=== PATIENT | female | born 1975 | race Caucasian/White ===

== ENCOUNTER 2017-05-25 11:13 | Emergency (ER) | payer OTHER, SELFPAY ==
[2017-05-25 12:37] VITALS: BP 115/67; PULSE 77; RESP 20; TEMP 36.6; O2SAT 98; BMI 29.0
--- NOTE | 2017-05-25 12:48 | HMH.EDUTC ---
[facility] [place] Clinical Impression: Back pain with right-sided sciatica, Microscopic hematuria Disposition: Home, Self-Care Condition on Discharge: Good Instructions: DI for Back Pain With Sciatica, DI for Hematuria Additional Instructions: * naproxen every 12 hours with meal as needed for pain/inflammation. * Remember you had a toradol shot, similiar anti-inflammatory in clinic * you did have trace blood in your urine as we discussed. This could have been Dr. Aldana' concern. Follow up with him to review this visit is VERY important. If your back is not improving, you might need additional medication, imaging, therapy. * No additional anti-inflammatories like motrin, aleve, advil with the above amount of ibuprofen. You CAN still take Tylenol every 4 hours as needed if you need something more for pain. * Ice x15-20 mins 3-4 times a day or moist heat x15-20 mins 3-4 times a day to affected area, whichever gives you the most relief * Keep this area active. No movement leads to more stiffness. However, take it easy too and avoid heavy lifting, pushing, pulling. I am glad you are off until Tuesday night. If not resolved by then, I would encourage you to not return to work due to the risk of reinjuring it and instead, see Dr. Aldana on Tuesday. Prescriptions: Naproxen 375 mg PO BID #14 tab Referrals: Ramon Aldana [Primary Care Provider] - (Immediately for new or worsening symptoms or if no noticeable improvement over the next 3-4 days.) Forms: Work/School Release Time of Disposition: 13:18 Medical Decision Making Vital Signs: 05/25/17 12:37 Temperature 97.9 F Temperature Source Temporal Artery Scan Pulse Rate [Left Brachial] 77 Respiratory Rate 20 Blood Pressure [Left Arm] 115/67 Blood Pressure Mean [Left Arm] 83 Blood Pressure Source [Left Arm] Automatic Cuff Blood Pressure Position [Left Arm] Sitting 02 Sat by Pulse Oximetry 98 Oxygen Delivery Method Room Air - Lab Data Lab results reviewed: Yes: I reviewed the patient's lab results. Lab Results 05/25/17 12:41: Urine Color Yellow, Urine Appearance Clear, Urine pH 5.5, Ur Specific [place] 1.015, Urine Protein Negative, Urine Glucose (UA) Negative, Urine Ketones Negative, Urine Blood Trace, Urine Nitrate Negative, Urine Bilirubin Negative, Urine Urobilinogen 0.2, Ur Leukocyte Esterase Negative Orders (Tests/Meds): ED MEDICATIONS Discontinued Medications Generic Name Dose Route Start Last Admin Trade Name Manuela PRN Reason Stop Dose Admin Ketorolac Tromethamine 60 mg 05/25/17 12:48 05/25/17 13:04 Toradol 60mg/2ml Vial IM 05/25/17 12:49 60 mg ONCE ONE Administration - Kvng Inquiry Pt receiving controlled substance: No - Reevaluation(s) Time: 13:15 Reevaluation #1: Pt reports pain already improving and ready to be discharged. She isn't sure if from the injection or the tylenol she took before arrival but pain down to 4/10. [facility] [place] - General Stated complaint: Lower back pain Time Seen by Provider: 05/25/17 12:40 Mode of Arrival: Ambulatory Source of Information: Patient Limitations: No Limitations Description of Symptoms (Recalled from Triage Doc. by RN): C/O LOWER BACK PAIN X1 MONTH HEENT Symptoms (Recalled from RN notes): No Resp Symptoms (Recalled from RN notes): No Skin Symptoms (Recalled from RN notes): No MS Symptoms (Recalled from RN notes): Yes (BACK PAIN) Functional Status (Recalled from RN notes): N/A - History of Present Illness Provider Complaint: c/o right low back pain x 3 weeks. Similiar pain in August 2016. Saw Dr. Aldana at that time and was told it might be her kidneys. Pain resolved within a week with tylenol and she never followed up. No pain since until approx 3 weeks ago. No injury or trauma. Works in Housekeeping and lifts trash nightly. pain 8/10. Constant aching. Caused her to call in last night. Needs work excuse. Pain worse with laying down and some movements. Sharp pain radiates into right thigh at times. N
[2017-05-25 12:56] LABS: Apearance,Urine Clear (Clear); Bilirubin,Urine Negative (Negative); Blood, Urine Trace (Negative); Color,Urine Yellow (Yellow); Glucose,Urine (UA) Negative (Negative); Ketones,Urine Negative (Negative); PH,Urine 5.5 (5.0-8.5); Protein,Urine Negative (Negative); Specific Gravity, Urine 1.015 (1.005-1.030); Urobilinogen,Urine 0.2 EU/dl (0.2)
[2017-05-25 12:57] LABS: UTC Leukocyte Esterase,Urine Negative (Negative); UTC Nitrate,Urine Negative (Negative)
--- NOTE | 2017-05-25 13:06 | ED_ITS ---
[facility] – [place] Disposition Clinical Impression: Back pain with right-sided sciatica, Microscopic hematuria Disposition: Home, Self-Care Condition on Discharge: Good Instructions: DI for Back Pain With Sciatica, DI for Hematuria Additional Instructions: * naproxen every 12 hours with meal as needed for pain/inflammation. * Remember you had a toradol shot, similiar anti-inflammatory in clinic * you did have trace blood in your urine as we discussed. This could have been Dr. Aldana' concern. Follow up with him to review this visit is VERY important. If your back is not improving, you might need additional medication, imaging, therapy. * No additional anti-inflammatories like motrin, aleve, advil with the above amount of ibuprofen. You CAN still take Tylenol every 4 hours as needed if you need something more for pain. * Ice x15-20 mins 3-4 times a day or moist heat x15-20 mins 3-4 times a day to affected area, whichever gives you the most relief * Keep this area active. No movement leads to more stiffness. However, take it easy too and avoid heavy lifting, pushing, pulling. I am glad you are off until Tuesday night. If not resolved by then, I would encourage you to not return to work due to the risk of reinjuring it and instead, see Dr. Aldana on Tuesday. Prescriptions: Naproxen 375 mg PO BID #14 tab Referrals: Ramon Aldana [Primary Care Provider] - (Immediately for new or worsening symptoms or if no noticeable improvement over the next 3-4 days.) Forms: Work/School Release Time of Disposition: 13:18 Medical Decision Making Vital Signs: 05/25/17 12:37 Temperature 97.9 F Temperature Source Temporal Artery Scan Pulse Rate [Left Brachial] 77 Respiratory Rate 20 Blood Pressure [Left Arm] 115/67 Blood Pressure Mean [Left Arm] 83 Blood Pressure Source [Left Arm] Automatic Cuff Blood Pressure Position [Left Arm] Sitting 02 Sat by Pulse Oximetry 98 Oxygen Delivery Method Room Air - Lab Data Lab results reviewed: Yes: I reviewed the patient's lab results. Lab Results 05/25/17 12:41: Urine Color Yellow, Urine Appearance Clear, Urine pH 5.5, Ur Specific [place] 1.015, Urine Protein Negative, Urine Glucose (UA) Negative, Urine Ketones Negative, Urine Blood Trace, Urine Nitrate Negative, Urine Bilirubin Negative, Urine Urobilinogen 0.2, Ur Leukocyte Esterase Negative Orders (Tests/Meds): ED MEDICATIONS Discontinued Medications Generic Name Dose Route Start Last Admin Trade Name Manuela PRN Reason Stop Dose Admin Ketorolac Tromethamine 60 mg 05/25/17 12:48 05/25/17 13:04 Toradol 60mg/2ml Vial IM 05/25/17 12:49 60 mg ONCE ONE Administration - Kvng Inquiry Pt receiving controlled substance: No - Reevaluation(s) Time: 13:15 Reevaluation #1: Pt reports pain already improving and ready to be discharged. She isn't sure if from the injection or the tylenol she took before arrival but pain down to 4/ 10. [facility] [place] HPI - General Stated complaint: Lower back pain Time Seen by Provider: 05/25/17 12:40 Mode of Arrival: Ambulatory Source of Information: Patient Limitations: No Limitations Description of Symptoms (Recalled from Triage Doc. by RN): C/O LOWER BACK PAIN X1 MONTH HEENT Symptoms (Recalled from RN notes): No Resp Symptoms (Recalled from RN notes): No Skin Symptoms (Recalled from RN notes): No MS Symptoms (Recalled from RN notes): Yes (BACK PAIN) Functional Status (Recalled from RN
[2017-05-25 13:23] VITALS: BP 115/67; PULSE 77; RESP 20; TEMP 36.6; O2SAT 98
== END 2017-05-25 13:24 | disposition home or self-care (01) ==
PROVIDERS: Emergency Provider Nurse Practitioner Family; Family Provider Internal Medicine; PCP Internal Medicine
DX: M54.31 Sciatica, right side (principal); R31.29 Other microscopic hematuria
CPT/HCPCS: 81003; 96372; 99201

== ENCOUNTER 2017-06-21 00:54 | Emergency (ER) | payer OTHER, SELFPAY ==
--- NOTE | 2017-06-21 | CT_ITS ---
CT head/brain wo con HISTORY: Headache, loss of consciousness , syncope ITS.REASON: FALL ORDERING PHYSICIAN: Aurelio Saavedra MD PATIENT AGE: 42 years COMPARISON: None TECHNIQUE: Axial images obtained without contrast. Brain and bone windows reviewed. FINDINGS: No midline shift, mass effect, intracranial hemorrhage, hydrocephalus, or extra-axial fluid collection is evident. The calvarium has an unremarkable appearance. No mastoid effusion. No sinus air-fluid levels.. IMPRESSION: Negative CT head without contrast. No acute finding.
[2017-06-21 00:56] VITALS: BP 128/91; PULSE 90; RESP 16; O2SAT 97
[2017-06-21 01:01] VITALS: BP 156/115; PULSE 97; RESP 20; TEMP 36.7; O2SAT 97; BMI 26.6
--- NOTE | 2017-06-21 01:05 | CT_ITS ---
CT cervical spine wo con CLINICAL INDICATION: Neck pain following injury ITS.REASON: fall ORDERING PHYSICIAN: Aurelio Saavedra MD PATIENT AGE: 42 years COMPARISON: None FINDINGS: Normal alignment. No fracture or dislocation. No prevertebral soft tissue swelling. The lung apices are clear. There are slight decrease in the disc space at C5-C6 suggesting early degenerative disc disease IMPRESSION: No acute fracture
--- NOTE | 2017-06-21 01:05 | XR_ITS ---
XR chest 2V HISTORY: Posttraumatic pain, fall with injury and pain ITS.REASON: fall ORDERING PHYSICIAN: Aurelio Saavedra MD PATIENT AGE: 42 years COMPARISON: None available FINDINGS: The cardiomediastinal silhouette and pulmonary vascularity are within normal limits. The lungs are clear without infiltrates, suspicious nodules, or pleural effusions. There is a faint nodular opacity in the right apex which measures 4 mm nonspecific probably benign No acute bony abnormalities. IMPRESSION: No acute finding
[2017-06-21 01:16] LABS: Basophils # 0.1 K/mm3 (0-0.2); Basophils % 0.6 % (0.1-2.0); Eosinophils # 0.4 K/mm3 (0.0-0.4); Eosinophils % 4.5 % (0.1-12.0); Hematocrit 41.9 % (37.0-47.0); Hemoglobin 14.3 g/dL (12.2-16.2); Lymphocytes # 3.5 K/mm3 (0.7-4.5); Lymphocytes % 41.8 K/mm3 (10-50); Mean Corpuscular Hemoglobin 31.9 pg (27.0-31.2); Mean Corpuscular Volume 93.6 fl (81-99); Mean Platelet Volume 7.3 fl (7.4-10.4); Monocytes # 0.3 K/mm3 (0.1-1.0); Monocytes % 3.7 % (1.7-9.3); Neutrophils # 4.2 K/mm3 (1.8-7.8); Neutrophils % 49.5 % (37.0-80.0); Platelet Count 259 K/mm3 (142-424); Red Blood Count 4.48 M/mm3 (4.20-5.40); Red Cell Distribution Width 12.2 % (11.5-17.5); White Blood Count 8.4 K/mm3 (4.8-10.8)
--- NOTE | 2017-06-21 01:18 | PC.NURSE ---
FINGERSTICK BLOOD SUGAR - 150
[2017-06-21 01:39] LABS: Alanine Aminotransferase 27 U/L (12-78); Albumin Level 3.9 gm/dL (3.4-5.0); Alkaline Phosphatase 89 U/L (46-116); Anion Gap 11.3 mEq/L (5-15); Aspartate Amino Transferase 12 U/L (15-37); Bilirubin,Total 0.2 mg/dL (0.2-1.0); Blood Urea Nitrogen 12 mg/dL (7-18); CKMB Relative Index 1.8 U/L (0-4.0); Carbon Dioxide 27 mmol/L (21.0-32.0); Chloride 102 mmol/L (98-107); Creatine Kinase 79 U/L (26-192); Creatine Kinase MB 1.4 mg/ml (0.0-3.6); Creatinine Clearance Estimated 108 mL/min (0-300); Creatinine,Serum 0.77 mg/dL (0.55-1.02); Estimated Glomerular Filt Rate 82 ml/min (>60); GFR (African American) 99 ML/MIN (>60); Globulin 4.1 gm/dl (1.3-3.2); Glucose 118 mg/dL (74-106); Potassium 3.3 mmoL/L (3.5-5.1); Sodium 137 mmol/L (136-145); Troponin I < 0.02 ng/ml (0.00-0.06)
[2017-06-21 01:53] LABS: Free Thyroxine Index 3.5 ug/dL (5.93-13.13); T4 (Thyroxine) 10.7 ug/dl (4.7-13.3); Thyroid Stimulating Hormone 1.97 uIU/ml (0.358-3.740); Triiodothryronine (T3) Uptake 33 % (31-39)
--- NOTE | 2017-06-21 02:20 | HMH.EDSYNC ---
ED Disposition Clinical Impression: Syncope Qualifiers: Syncope type: unspecified Qualified Code(s): R55 - Syncope and collapse Disposition: Home, Self-Care Condition on Discharge: Good Instructions: DI for Syncope in Adults (Fainting) Additional Instructions: see pcp for follow up Referrals: Ramon Aldana [Primary Care Provider] - - Critical Care Critical Care Time: No Attestation: On 06/21/17, the high probability of a clinically significant, sudden or life threatening deterioration of the following system(s) required my full and direct attention, intervention and personal management. The time I documented below is in addition to time spent performing reported procedures but includes the following listed in this critical care notation. Medical Decision Making - Medical Records Medical records reviewed: Yes: I reviewed the patient's medical records. Vital Signs: 06/21/17 00:56 06/21/17 01:01 Temperature 98.1 F Temperature Source Oral Pulse Rate [Right Brachial] 90 97 H Respiratory Rate 16 20 Blood Pressure [Right Arm] 128/91 156/115 Blood Pressure Mean [Right Arm] 103 128 Blood Pressure Source [Right Arm] Automatic Cuff Automatic Cuff Blood Pressure Position [Right Arm] Supine Supine 02 Sat by Pulse Oximetry 97 97 Oxygen Delivery Method Room Air Room Air - Lab Data Lab results reviewed: Yes: I reviewed the patient's lab results. Lab Results 06/21/17 01:10: WBC 8.4, RBC 4.48, Hgb 14.3, Hct 41.9, MCV 93.6, MCH 31.9 H, MCHC 34.0, RDW 12.2, Plt Count 259, MPV 7.3 L, Neut % (Auto) 49.5, Lymph % (Auto) 41.8, [place] % (Auto) 3.7, Eos % (Auto) 4.5, Baso % (Auto) 0.6, Neut # (Auto) 4.2, Lymph # (Auto) 3.5, [place] # (Auto) 0.3, Eos # (Auto) 0.4, Baso # (Auto) 0.1 06/21/17 01:10: Sodium 137, Potassium 3.3 L, Chloride 102, Carbon Dioxide 27, Anion Gap 11.3, BUN 12, Creatinine 0.77, Estimated Creat Clear 108, Estimated GFR 82, Est GFR ( Amer) 99, Glucose 118 H, Calcium 9.0, Total Bilirubin 0.2, AST 12 L, ALT 27, Alkaline Phosphatase 89, Total Creatine Kinase 79, CK-MB (CK-2) 1.4, CK-MB (CK-2) Rel Index 1.8, Troponin I < 0.02, Total Protein 8.0, Albumin 3.9, Globulin 4.1 H, Albumin/Globulin Ratio 1.0 L 06/21/17 01:10: TSH 1.97, Free T4 Index 3.5 L, Thyroxine (T4) 10.7, T3 Uptake 33 Result diagrams: 06/21/17 01:10 06/21/17 01:10 Orders (Tests/Meds): ED MEDICATIONS Discontinued Medications Generic Name Dose Route Start Last Admin Trade Name Freq PRN Reason Stop Dose Admin Sodium Chloride 1,000 mls @ 999 mls/hr 06/21/17 01:15 06/21/17 01:16 Sod Chlor 0.9% 1000ml Bag IV 06/21/17 02:15 999 mls/hr .Q1H1M MESSI Administration ORDERS Category Date Time Status CT cervical spine wo con Stat Cat Scan 06/21/17 01:[address] head/brain wo con Routine Cat Scan 06/21/17 Taken Chest XR 2 view (NOT portable) [XR chest 2V] Stat Exams 06/21/17 01:05 Taken Urinalysis-Acute [Urinalysis and Microscopic] Stat Lab 06/21/17 01:37 Ordered fingerstick glucose [POC Glucose,Bedside] Stat Lab 06/21/17 01:16 Ordered - Radiology Data #1 Image(s): Chest Image Reviewed: Yes I reviewed the patient's radiology image Preliminary Findings: Normal/NAD - CT Data CT Scan: Head, C-Spine Time Received: 02:[address] Reviewed: Yes: I have viewed the radiologist's interpretation Preliminary Findings: Normal/NAD, No Fracture Seen - ECG Data Tracing #1 I reviewed this ECG and interpreted as documented below: Normal Sinus Rhythm: Yes Ischemic changes: non-specific ST-T wave changes - Kvng Inquiry Pt receiving controlled substance: No Syncope HPI - General Chief Complaint: Syncope Stated Complaint: Passed Out Time Seen by Provider: 06/21/17 02:20 Mode of Arrival: Ambulatory Source of Information: Patient, Medical Record Limitations: No Limitations Description of Symptoms (Recalled from ER Triage Doc. by RN): HEAT CURER HERE AT THE HOSPITAL, COWORKER FOUND HER ON THE FLOOR IN T
--- NOTE | 2017-06-21 02:23 | ED_ITS ---
ED Disposition Clinical Impression: Syncope Qualifiers: Syncope type: unspecified Qualified Code(s): R55 - Syncope and collapse Disposition: Home, Self-Care Condition on Discharge: Good Instructions: DI for Syncope in Adults (Fainting) Additional Instructions: see pcp for follow up Referrals: Ramon Aldana [Primary Care Provider] - - Critical Care Critical Care Time: No Attestation: On 06/21/17, the high probability of a clinically significant, sudden or life threatening deterioration of the following system(s) required my full and direct attention, intervention and personal management. The time I documented below is in addition to time spent performing reported procedures but includes the following listed in this critical care notation. Medical Decision Making - Medical Records Medical records reviewed: Yes: I reviewed the patient's medical records. Vital Signs: 06/21/17 00:56 06/21/17 01:01 Temperature 98.1 F Temperature Source Oral Pulse Rate [Right Brachial] 90 97 H Respiratory Rate 16 20 Blood Pressure [Right Arm] 128/91 156/115 Blood Pressure Mean [Right Arm] 103 128 Blood Pressure Source [Right Arm] Automatic Cuff Automatic Cuff Blood Pressure Position [Right Arm] Supine Supine 02 Sat by Pulse Oximetry 97 97 Oxygen Delivery Method Room Air Room Air - Lab Data Lab results reviewed: Yes: I reviewed the patient's lab results. Lab Results 06/21/17 01:10: WBC 8.4, RBC 4.48, Hgb 14.3, Hct 41.9, MCV 93.6, MCH 31.9 H, MCHC 34.0, RDW 12.2, Plt Count 259, MPV 7.3 L, Neut % (Auto) 49.5, Lymph % (Auto ) 41.8, [place] % (Auto) 3.7, Eos % (Auto) 4.5, Baso % (Auto) 0.6, Neut # (Auto) 4.2, Lymph # (Auto) 3.5, [place] # (Auto) 0.3, Eos # (Auto) 0.4, Baso # (Auto) 0.1 06/21/17 01:10: Sodium 137, Potassium 3.3 L, Chloride 102, Carbon Dioxide 27, Anion Gap 11.3, BUN 12, Creatinine 0.77, Estimated Creat Clear 108, Estimated GFR 82, Est GFR ( Amer) 99, Glucose 118 H, Calcium 9.0, Total Bilirubin 0.2, AST 12 L, ALT 27, Alkaline Phosphatase 89, Total Creatine Kinase 79, CK-MB (CK-2) 1.4, CK-MB (CK-2) Rel Index 1.8, Troponin I < 0.02, Total Protein 8.0, Albumin 3.9, Globulin 4.1 H, Albumin/Globulin Ratio 1.0 L 06/21/17 01:10: TSH 1.97, Free T4 Index 3.5 L, Thyroxine (T4) 10.7, T3 Uptake 33 Result diagrams: 06/21/17 01:10 06/21/17 01:10 Orders (Tests/Meds): ED MEDICATIONS Discontinued Medications Generic Name Dose Route Start Last Admin Trade Name Freq PRN Reason Stop Dose Admin Sodium Chloride 1,000 mls @ 999 mls/hr 06/21/17 01:15 06/21/17 01:16 Sod Chlor 0.9% 1000ml Bag IV 06/21/17 02:15 999 mls/hr .Q1H1M MESSI Administration ORDERS Category Date Time Status CT cervical spine wo con Stat Cat Scan 06/21/17 01:[address] head/brain wo con Routine Cat Scan 06/21/17 Taken Chest XR 2 view (NOT portable) [XR chest 2V] Stat Exams 06/21/17 01:05 Taken Urinalysis-Acute [Urinalysis and Microscopic] Stat Lab 06/21/17 01:37 Ordered fingerstick glucose [POC Glucose,Bedside] Stat Lab 06/21/17 01:16 Ordered - Radiology Data #1 Image(s): Chest Image Reviewed: Yes I reviewed the patient's radiology image Preliminary Findings: Normal/NAD - CT Data CT Scan: Head, C-Spine Time Received: 02:[address] Reviewed: Yes: I have viewed the radiologist's interpretation Prelimina
[2017-06-21 02:31] VITALS: BP 123/70; PULSE 78; RESP 20; TEMP 37.1; O2SAT 99
[2017-06-22 10:01] LABS: POC Glucose,Bedside 150 mg/dL (70-110)
== END 2017-06-21 02:32 | disposition home or self-care (01) ==
PROVIDERS: Emergency Provider Emergency Medicine; Family Provider Internal Medicine; PCP Internal Medicine
DX: R55 Syncope and collapse (principal)
CPT/HCPCS: 70450; 71046; 72125; 80053; 82550; 82553; 82962; 84436; 84443; 84479; 84484; 85025; 93005; 96365; 99283

== ENCOUNTER 2019-11-22 13:29 | Emergency (ER) | payer OTHER, SELFPAY ==
[2019-11-22 13:51] VITALS: BP 141/80; PULSE 82; RESP 19; TEMP 37.1; O2SAT 99; BMI 30.1
--- NOTE | 2019-11-22 14:07 | HMH.EDUTC ---
[facility] [place] Dis[place] Clinical Impression: Pharyngitis Qualifiers: Pharyngitis/tonsillitis etiology: unspecified etiology Qualified Code(s): J02.9 - Acute pharyngitis, unspecified Disposition: Home, Self-Care Condition on Discharge: Good Instructions: Sore Throat, DI for Pharyngitis/Tonsillopharyngitis -- Adult, Preventing the Spread of Coronavirus Discharge Instructions Additional Instructions: Drink plenty of fluids. Take tylenol or ibuprofen for pain or fever. Take the medications as directed. Follow up with your regular doctor. GO TO THE ER FOR ANY WORSENING SYMPTOMS FOLLOW THE DIRECTIONS ON THE COVID-19 HAND OUT THAT WE GAVE YOU REGARDING SELF-ISOLATION UNTIL YOU KNOW YOUR COVID-19 RESULTS Prescriptions: Ondansetron [Zofran 4mg ODT] 4 mg PO Q8HP PRN #20 tab.rapdis PRN Reason: Nausea Transmission Status: Received by [facility] Azithromycin [Z-John 250mg Tab*] 250 mg PO UD DOSE PK #6 tab Transmission Status: Received by [facility] Referrals: Ramon Aldana [Primary Care Provider] - Forms: Work/School Release Time of Disposition: 14:09 Medical Decision Making - Medical Records Medical records reviewed: No: I reviewed the patient's medical records. - Kvng Inquiry Pt receiving controlled substance: No Vital Signs: 11/22/19 13:51 11/22/19 14:10 Temperature 98.7 F 98.7 F Temperature Source Oral Pulse Rate 82 Pulse Rate [Right Brachial] 82 Respiratory Rate 19 19 Blood Pressure 141/80 H Blood Pressure [Right Arm] 141/80 H Blood Pressure Mean [Right Arm] 100 Blood Pressure Source [Right Arm] Automatic Cuff Blood Pressure Position [Right Arm] Sitting 02 Sat by Pulse Oximetry 99 Oxygen Delivery Method Room Air Orders (Tests/Meds): ORDERS Category Date Time Status Coronavirus 19 Swab (OUTPT) Routine Lab 11/22/19 13:50 Ordered [facility] [place] HPI - General Stated complaint: sore throat Time Seen by Provider: 11/22/19 14:07 Mode of Arrival: Ambulatory Source of Information: Patient Limitations: No Limitations Description of Symptoms (Recalled from Triage Doc. by RN): PATIENT C/O SORE THROAT AND SINUS DRAINAGE SINCE LAST NIGHT. GRANDSON RECENTLY DIAGNOSED WITH STREP HEENT Symptoms (Recalled from RN notes): Yes Resp Symptoms (Recalled from RN notes): No Skin Symptoms (Recalled from RN notes): No MS Symptoms (Recalled from RN notes): No Functional Status (Recalled from RN notes): WNL - History of Present Illness Provider Complaint: She c/o sore throat, fever up to 101.9, mild cough and malaise for the past 2 days. - Related Data Home Medications Medication Instructions Recorded Confirmed Lisinopril/Hydrochlorothiazide 1 tab PO DAILY 11/23/18 11/23/18 [Zestoretic 10/12.5mg tablet] Previous Rx's Medication Instructions Recorded Azithromycin [Z-John 250mg Tab*] 250 mg PO UD DOSE PK #6 tab 11/23/18 Brompheniramine/Pseudoephed/Dm 5 ml PO Q6HP PRN #240 syrup 11/23/18 [Bromfed Dm Cough Syrup] methylPREDNISolone [Medrol] 4 mg PO DIRECTED 6 Days #21 11/23/18 tab.ds.pk Azithromycin [Z-John 250mg Tab*] 250 mg PO UD DOSE PK #6 tab 11/22/19 Ondansetron [Zofran 4mg ODT] 4 mg PO Q8HP PRN #20 tab.rapdis 11/22/19 Allergies Allergy/AdvReac Type Severity Reaction Status Date / Time No Known Allergies Allergy Verified 06/26/18 13:14 - Worker's Comp Is this a Worker's Comp case?: No [facility] History - Hepatitis A Screen Drug use history?: No High risk sexual behaviors?: No History of sexually transmitted infection?: No Currently employed?: No Childcare worker?: No Do you have indoor plumbing?: Yes Do you have electricity?: Yes Attestation statement:: This patient has been screened for Hepatitis A risk factors. I have reviewed the patient's past medical history: Yes Medical History: Denies:: Cancer, Diabetes Mellitus Type 1, Diabetes Mellitus Type 2, Hypertension, MRSA, Urinary Tract Infection Amputation: No Fractures: N
[2019-11-22 14:10] VITALS: BP 141/80; PULSE 82; RESP 19; TEMP 37.1; O2SAT 99
[2019-11-22 14:22] LABS: UTC Strep Screen (Rapid) Negative (Negative)
== END 2019-11-22 14:12 | disposition home or self-care (01) ==
LOC: UTC 14:33
PROVIDERS: Emergency Provider Nurse Practitioner Family; PCP Internal Medicine
DX: J02.9 Acute pharyngitis, unspecified (principal); Z03.818 Encounter for observation for suspected exposure to other biological agents ruled out
CPT/HCPCS: 87880; 99202; U0003

== ENCOUNTER → 2020-01-22 14:55 | Outpatient (POV) | payer OTHER, SELFPAY | PROVIDERS: Visit Provider Dermatology | DX: Z00.00 Encounter for general adult medical examination without abnormal findings (principal) ==

== ENCOUNTER → 2020-01-30 12:48 | Outpatient (CLI) | payer OTHER, SELFPAY ==
--- NOTE | 2020-01-30 12:55 | MM_ITS ---
PROCEDURE: MM DIG SCREENING MAMM BI W/CAD Digital Breast Tomosynthesis Included CLINICAL INDICATION: SCREENING There is a history of breast cancer in the patient's maternal grandmother. COMPARISON: MG DMSB DIG MAMM-SCREEN RAMÓN from 03/29/2014 MG DMDB DIG MAMM-DX RAMÓN from 12/05/2015 MG,US CYST US CYST ASPIRATION from 12/23/2015 TECHNIQUE: Standard CC and MLO images and 3D Tomosynthesis was obtained. R2 CAD reviewed. FINDINGS: There is a markedly and diffusely dense parenchymal pattern bilaterally. Deondre images are most helpful in this type of dense breast parenchyma. There are many scattered benign-appearing microcalcifications in each breast with some areas suggesting sclerosing adenosis. There is slightly more prominent sclerosing adenosis in each breast with than compared to previous studies and this is best demonstrated on deondre images. There is faint arterial calcification in each breast. There is a stable benign-appearing nodular density axillary tail left breast likely a low-lying node. There is no suspicious lesion and no suspicious microcalcifications. IMPRESSION: Markedly dense parenchymal pattern with areas of sclerosing adenosis bilaterally BI-RAD Category: 2 Benign Finding(s) FOLLOW-UP: 1YR 1 Year Follow-up (A letter has been sent to the patient regarding results of the study.) Dictated by: Dr. Simon Fernando MD 02/01/2020 08:18 Dr. Simon Fernando MD in [place] 02/01/2020 08:18
== END ==
PROVIDERS: PCP Internal Medicine; Visit Provider Internal Medicine
DX: Z12.31 Encounter for screening mammogram for malignant neoplasm of breast (principal)
CPT/HCPCS: 77063; 77067

== ENCOUNTER 2020-02-07 19:33 | Emergency (ER) | payer OTHER, SELFPAY ==
[2020-02-07 19:45] VITALS: BP 138/65; PULSE 118; RESP 16; TEMP 36.6; O2SAT 98; BMI 30.9
--- NOTE | 2020-02-07 20:05 | HMH.EDGENADL ---
ED Disposition Clinical Impression: Postoperative bleeding from incision Disposition: Home, Self-Care Condition on Discharge: Good Additional Instructions: Call your surgeon if bleeding returns or incision opens, swelling, excessive bruising, redness or fever. Referrals: Ramon Aldana [Primary Care Provider] - - Critical Care Critical Care Time: No Attestation: On 02/07/20, the high probability of a clinically significant, sudden or life threatening deterioration of the following system(s) required my full and direct attention, intervention and personal management. The time I documented below is in addition to time spent performing reported procedures but includes the following listed in this critical care notation. Medical Decision Making - Kvng Inquiry Pt receiving controlled substance: No Vital Signs: 02/07/20 19:45 Temperature 97.8 F Temperature Source Oral Pulse Rate [Right Brachial] 118 H Respiratory Rate 16 Blood Pressure [Right Arm] 138/65 Blood Pressure Mean [Right Arm] 89 Blood Pressure Source [Right Arm] Automatic Cuff Blood Pressure Position [Right Arm] Sitting 02 Sat by Pulse Oximetry 98 Oxygen Delivery Method Room Air General Adult HPI - General Chief complaint: Recheck/Abnormal Lab/Rx Stated complaint: Had surgery today on arm, bleeding Time Seen by Provider: 02/07/20 20:06 Mode of Arrival: Family Vehicle Limitations: No Limitations Description of Symptoms (Recalled from ER Triage Doc. by RN): pt states she had a skin cancer spot removed to e and also a lumpectomy to left axilla area and noted while en route home from [place] was bleeding profusely from one area; stated it drenched one of her shirts and she changed. 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 After arriving home noted bleeding from chest incision and lateral end of wound had come open, glue had come loose. Prior to my arrival, nurse has reapproximated and applied tissue adhesive to the open area and symptoms now resolved. - Related Data Home Medications Medication Instructions Recorded Confirmed Lisinopril/Hydrochlorothiazide 1 tab PO DAILY 11/23/18 11/23/18 [Zestoretic 10/12.5mg tablet] Previous Rx's Medication Instructions Recorded Azithromycin [Z-John 250mg Tab*] 250 mg PO UD DOSE PK #6 tab 11/23/18 Brompheniramine/Pseudoephed/Dm 5 ml PO Q6HP PRN #240 syrup 11/23/18 [Bromfed Dm Cough Syrup] methylPREDNISolone [Medrol] 4 mg PO DIRECTED 6 Days #21 11/23/18 tab.ds.pk Azithromycin [Z-John 250mg Tab*] 250 mg PO UD DOSE PK #6 tab 11/22/19 Ondansetron [Zofran 4mg ODT] 4 mg PO Q8HP PRN #20 tab.rapdis 11/22/19 Allergies Allergy/AdvReac Type Severity Reaction Status Date / Time No Known Allergies Allergy Verified 06/26/18 13:14 [facility] History - Hepatitis A Screen Drug use history?: No High risk sexual behaviors?: No History of sexually transmitted infection?: No Currently employed?: No Childcare worker?: No Do you have indoor plumbing?: Yes Do you have electricity?: Yes Attestation statement:: This patient has been screened for Hepatitis A risk factors. I have reviewed the patient's past medical history: Yes Medical History: Denies:: Cancer, Diabetes Mellitus Type 1, Diabetes Mellitus Type 2, Hypertension, MRSA, Urinary Tract Infection Amputation: No Fractures: No - Social History Smoking Status: Never smoker Alcohol Intake: never Occupational Status: other ROS Obtained: Yes Systems reviewed as appropriate & no additional complaints - Constitutional Constitutional: Denies fever(s) - Integumentary/Breasts Skin/Breast: Reports as per HPI Physical Exam - General General appearance: alert, in no apparent distress - Neck Neck exam: Present: trachea midline - Chest Chest inspection: Present: symmetric chest wall rise - Resp
[2020-02-07 20:37] VITALS: BP 121/63; PULSE 76; RESP 16; TEMP 36.7; O2SAT 98
== END 2020-02-07 20:40 | disposition home or self-care (01) ==
PROVIDERS: Emergency Provider Emergency Medicine; PCP Internal Medicine
DX: L76.21 Postprocedural hemorrhage of skin and subcutaneous tissue following a dermatologic procedure (principal); I10 Essential (primary) hypertension
CPT/HCPCS: 99282

== ENCOUNTER → 2020-03-04 14:58 | Outpatient (POV) | payer OTHER, SELFPAY | PROVIDERS: Visit Provider Dermatology | DX: Z00.00 Encounter for general adult medical examination without abnormal findings (principal) ==

== ENCOUNTER 2020-03-15 12:13 | Emergency (ER) | payer OTHER, SELFPAY ==
[2020-03-15 12:49] VITALS: BP 133/91; PULSE 76; RESP 18; TEMP 36.9; O2SAT 100; BMI 28.3
--- NOTE | 2020-03-15 12:58 | HMH.EDUTC ---
[facility] [place] Clinical Impression: URI (upper respiratory infection) Qualifiers: URI type: unspecified URI Qualified Code(s): J06.9 - Acute upper respiratory infection, unspecified Disposition: Home, Self-Care Condition on Discharge: Good Instructions: Preventing the Spread of Coronavirus Discharge Instructions, Sore Throat, DI for Sinusitis Additional Instructions: *Monitor Temp, Over the counter Motrin or Tylenol as directed/as needed Tylenol every 4 hours and Motrin every 6 hours (as long as your family doctor has told you that you can take it) for fever or pain. and straight to ER if unable to lower temp less than 101.0 after medication given *Warm salt water gargles may help to soothe the throat *Throat Lozenges *Warm fluids like tea with honey may help to soothe the throat *Sleep elevated *Humidifier/Vaporizer *Flonase 2 sprays in each nostril daily but be aware that it may take 2-3 days before you notice improvement Your throat swab was sent for culture. Those results are typically sent to your primary care. Be sure to follow up in 2-3 days with your family doctor/primary care physician if no improvement so they can review those result and treat if necessary. If you don?t have a primary care doctor, I recommend you get one but in the mean time, you will have to return to a walk in clinic Follow up IMMEDIATELY for new or worsening symptoms or no Noticeable improvement over the next 48-72 hours. 911 for difficulty breathing or swallowing You was tested for today for COVID19 your test result should be back in the next 24-48 hours, you may call to the [facility] later today or tomorrow to see if your test results are back and the result [phone] [facility] hours are 9am-9pm You was given a handout with instructions for Self Quarantine and Self isolation for while you wait on test results and what to do if they are positive If you are positive the Health Dept will be contacting you also Prescriptions: Fluticasone Propionate [Flonase 50mcg nasal spray 16gm] 1 spr NS DAILY #1 bottle Transmission Status: Pending to [facility] methylPREDNISolone [Medrol 4mg tab] 4 mg PO DIRECTED #21 tab Transmission Status: Pending to [facility] Azithromycin [Z-John 250mg Tab] 250 mg PO DIRECTED #6 tab Transmission Status: Pending to [facility] Referrals: Ramon Aldana [Primary Care Provider] - As needed Forms: Work/School Release Time of Disposition: 13:07 Medical Decision Making - Kvng Inquiry Pt receiving controlled substance: No Kvng was queried for this patient: No Vital Signs: 03/15/20 12:49 Temperature 98.4 F Temperature Source Oral Pulse Rate [Radial] 76 Respiratory Rate 18 Blood Pressure [Right Arm] 133/91 H Blood Pressure Mean [Right Arm] 105 Blood Pressure Source [Right Arm] Automatic Cuff Blood Pressure Position [Right Arm] Sitting 02 Sat by Pulse Oximetry 100 Oxygen Delivery Method Room Air Orders (Tests/Meds): ORDERS Category Date Time Status Covid-19 Nasal PCR ([facility]) Routine Lab 03/15/20 12:51 Ordered Medical Decision Narrative: Patient states that she has taken azithromycin and Medrol dose pack before without complications or reactions [facility] [place] HPI - General Stated complaint: sore throat, fever, cough Time Seen by Provider: 03/15/20 12:58 Mode of Arrival: Ambulatory Source of Information: Patient Limitations: No Limitations Description of Symptoms (Recalled from Triage Doc. by RN): sore throat, weakness, headache since yesterday HEENT Symptoms (Recalled from RN notes): Yes Resp Symptoms (Recalled from RN notes): No Skin Symptoms (Recalled from RN notes): No MS Symptoms (Recalled from RN notes): No Functional Status (Recalled from RN notes): wnl - History of Present Illness Provider Complaint: Patient states that she started having sore throat, sinus pain and pressure and body aches yesterday States that she is unsure if she has been exposed to anyone with
[2020-03-15 13:27] VITALS: BP 133/91; PULSE 76; RESP 18; TEMP 36.9; O2SAT 100
[2020-03-15 21:31] LABS: UTC Strep Screen (Rapid) Negative (Negative)
[2020-03-15 21:33] LABS: UTC Influenza A Antigen Negative (Negative); UTC Influenza B Antigen Negative (Negative)
== END 2020-03-15 13:28 | disposition home or self-care (01) ==
PROVIDERS: Emergency Provider Nurse Practitioner; PCP Internal Medicine
DX: Z20.828 Contact with and (suspected) exposure to other viral communicable diseases (principal); J06.9 Acute upper respiratory infection, unspecified; I10 Essential (primary) hypertension
CPT/HCPCS: 87804; 87880; 99202; U0003

== ENCOUNTER → 2020-05-06 08:58 | Outpatient (CLI) | payer OTHER, SELFPAY ==
[2020-05-06 11:13] LABS: Coronavirus 19 IgG Antibody Positive (Negative)
[2020-05-06 11:14] LABS: Coronavirus 19 IgM Antibody Positive (Negative)
== END ==
PROVIDERS: PCP Internal Medicine; Visit Provider Internal Medicine Gastroenterology
DX: Z01.812 Encounter for preprocedural laboratory examination (principal); Z86.16 Personal history of COVID-19; Z12.11 Encounter for screening for malignant neoplasm of colon
CPT/HCPCS: 36415; 86328; U0003

== ENCOUNTER → 2020-06-24 14:09 | Outpatient (POV) | payer OTHER, SELFPAY | PROVIDERS: Visit Provider Dermatology | DX: Z00.00 Encounter for general adult medical examination without abnormal findings (principal) ==

== ENCOUNTER → 2020-08-29 11:18 | Outpatient (CLI) | payer OTHER, SELFPAY ==
--- NOTE | 2020-08-29 11:23 | XR_ITS ---
PROCEDURE: XR CHEST 2V CLINICAL HISTORY: DYSPNEA ON EXERTION,FACIAL FLUSHING COMPARISON: CR CXR1 CHEST-PORTABLE from 05/13/2016 CR CXR2V XR chest 2V from 06/21/2017 CR CXR2V XR chest 2V from 02/14/2018 FINDINGS: The cardiomediastinal silhouette and pulmonary vascularity are within normal limits. The lungs are clear without infiltrates, suspicious nodules, or pleural effusions. No acute bony abnormalities. Postsurgical changes in the left axilla. IMPRESSION: No acute cardiopulmonary process. Dictated by: Neetu Ravi 08/29/2020 11:41 Neetu Ravi in [facility] 08/29/2020 11:41
--- NOTE | 2020-08-29 11:43 | ECG_ITS ---
APPROVED REPORT Exam: Resting ECG HR:77 bpm ECG Measurements Heart Rate 77 AXES DC 154 P 53 QRSd 86 QRS 34 QT 396 T 47 QTc 448 Conclusion Normal sinus rhythm Normal ECG Electronically signed by : Ramon Aldana, 09/08/2020 11:42:32
== END ==
LOC: RAD 11:20
PROVIDERS: PCP Internal Medicine; Visit Provider Internal Medicine
DX: R06.09 Other forms of dyspnea (principal); R23.2 Flushing
CPT/HCPCS: 71046; 93005

== ENCOUNTER → 2020-09-23 14:15 | Outpatient (POV) | payer OTHER, SELFPAY | PROVIDERS: Visit Provider Dermatology | DX: Z00.00 Encounter for general adult medical examination without abnormal findings (principal) ==

== ENCOUNTER → 2020-12-30 13:07 | Outpatient (POV) | payer OTHER, SELFPAY | PROVIDERS: Visit Provider Dermatology | DX: Z00.00 Encounter for general adult medical examination without abnormal findings (principal) ==

== ENCOUNTER → 2021-01-05 16:45 | Outpatient (CLI) | payer OTHER, SELFPAY | PROVIDERS: PCP Internal Medicine; Visit Provider Nurse Practitioner | DX: Z20.822 Contact with and (suspected) exposure to COVID-19 (principal); U07.1 COVID-19 | CPT/HCPCS: C9803; U0003; U0005 ==

== ENCOUNTER → 2021-01-08 09:54 | Outpatient (CLI) | payer OTHER, SELFPAY ==
[2021-01-08] VITALS (8 sets, daily range): BP systolic 122–150; BP diastolic 77–90; PULSE 78–91; RESP 16; TEMP 36.9–37.1; O2SAT 95–98
== END ==
LOC: INF 09:55
PROVIDERS: PCP Internal Medicine; Visit Provider Internal Medicine
DX: U07.1 COVID-19 (principal)
CPT/HCPCS: 96365

== ENCOUNTER → 2021-03-24 13:00 | Outpatient (POV) | payer OTHER, SELFPAY | PROVIDERS: Visit Provider Dermatology | DX: Z00.00 Encounter for general adult medical examination without abnormal findings (principal) ==

== ENCOUNTER → 2021-05-01 13:05 | Outpatient (CLI) | payer OTHER, SELFPAY ==
[2021-05-01 13:59] LABS: Coronavirus 19, PCR Not Detected (NotDetected); Influenza A, PCR Not Detected (NotDetected); Influenza B, PCR Not Detected (NotDetected)
== END ==
PROVIDERS: Visit Provider Nurse Practitioner
DX: Z20.822 Contact with and (suspected) exposure to COVID-19 (principal)
CPT/HCPCS: C9803; U0003; U0005

== ENCOUNTER → 2021-05-04 09:35 | Outpatient (CLI) | payer OTHER, SELFPAY | PROVIDERS: PCP Internal Medicine; Visit Provider Nurse Practitioner | DX: U07.1 COVID-19 (principal) | CPT/HCPCS: C9803; U0003; U0005 ==

== ENCOUNTER → 2021-06-09 15:56 | Outpatient (POV) | payer OTHER, SELFPAY | PROVIDERS: Visit Provider Dermatology | DX: Z00.00 Encounter for general adult medical examination without abnormal findings (principal) ==

== ENCOUNTER → 2021-06-12 12:45 | Outpatient (CLI) | payer OTHER, SELFPAY ==
--- NOTE | 2021-06-12 12:54 | MM_ITS ---
PROCEDURE INFORMATION: Exam: MG Bilateral Screening 3D Mammography Exam date and time: 06/12/2021 12:54 PM Age: 46 years old Clinical indication: Encounter for screening mammogram for malignant neoplasm of breast TECHNIQUE: Imaging protocol: Bilateral Screening tomosynthesis and 2D mammography including computer-aided detection (CAD) when performed. COMPARISON: MG MM DIG SCREENING MAMM BI W/CAD 01/30/2020 1:06 PM FINDINGS: MAMMOGRAPHY: Breast composition: The breast tissue is extremely dense, limiting the sensitivity of mammography. Mass: None. Architectural distortion: None. Calcifications: No suspicious calcifications. Asymmetric density: None. Skin thickening: None. Axillary adenopathy: None. IMPRESSION: No mammographic evidence of malignancy. Annual screening is recommended unless otherwise clinically indicated. ASSESSMENT: BI-RADS Category 1: Negative
== END ==
PROVIDERS: PCP Internal Medicine; Visit Provider Internal Medicine
DX: Z13.31 Encounter for screening for depression (principal)
CPT/HCPCS: 77063; 77067

== ENCOUNTER → 2021-10-06 14:45 | Outpatient (POV) | payer OTHER, SELFPAY | PROVIDERS: Visit Provider Dermatology | DX: Z00.00 Encounter for general adult medical examination without abnormal findings (principal) ==

== ENCOUNTER 2021-10-18 08:01 | Emergency (ER) | payer OTHER, SELFPAY ==
[2021-10-18 08:30] VITALS: BP 110/66; PULSE 85; RESP 17; TEMP 36.8; O2SAT 98; BMI 28.5
--- NOTE | 2021-10-18 08:47 | HMH.EDUTC ---
[facility] [place] Impression: Bronchitis Sinusitis Qualifiers: Sinusitis location: unspecified location Chronicity: acute Recurrence: non-recurrent Qualified Code(s): J01.90 - Acute sinusitis, unspecified Disposition: Home, Self-Care Condition on Discharge: Good Additional Instructions: Drink plenty of fluids. Take tylenol or ibuprofen for pain or fever. Take the medications as directed. Follow up with your regular doctor. GO TO THE ER FOR ANY WORSENING SYMPTOMS The cough medication (promethazine dm) will make you drowsy, so don't drive or operate heavy machinery after taking it. Prescriptions: Promethazine/Dextromethorphan [Promethazine-Dm Syrup] 5 ml PO Q6HP PRN #240 ml PRN Reason: Cough Transmission Status: Received by [id number] methylPREDNISolone [Medrol] 4 mg PO DIRECTED 6 Days #21 packet Transmission Status: Received by [id number] Cefdinir [Omnicef 300mg Capsule] 300 mg PO BID #20 cap Transmission Status: Received by [id number] Referrals: Ramon Aldana MD [Primary Care Provider] - Time of Disposition: 09:09 Medical Decision Making - Medical Records Medical records reviewed: No: I reviewed the patient's medical records. - Kvng Inquiry Pt receiving controlled substance: No Vital Signs: 10/18/21 08:30 10/18/21 09:23 Temperature 98.3 F 98.3 F Temperature Source Oral Pulse Rate 85 Pulse Rate [Left] 85 Respiratory Rate 17 17 Blood Pressure 110/66 Blood Pressure [Right Arm] 110/66 Blood Pressure Mean [Right Arm] 80 02 Sat by Pulse Oximetry 98 [facility] [place] - General Stated complaint: fatigue, cough, congestion Time Seen by Provider: 10/18/21 08:47 Description of Symptoms (Recalled from Triage Doc. by RN): patient comes in today for coughing and nasal drainage. patient states symptoms have been going on for 1 week. HEENT Symptoms (Recalled from RN notes): Yes Resp Symptoms (Recalled from RN notes): Yes Skin Symptoms (Recalled from RN notes): No MS Symptoms (Recalled from RN notes): No Functional Status (Recalled from RN notes): wnl - History of Present Illness Provider Complaint: She has has sinus congestion, dry cough and scratchy sore throat for the past 2 days. Onset (ago): minute(s) - Related Data Home Medications Medication Instructions Recorded Confirmed Lisinopril/Hydrochlorothiazide 1 tab PO DAILY 11/23/18 01/08/21 [Zestoretic 10/12.5mg tablet] Previous Rx's Medication Instructions Recorded Cefdinir [Omnicef 300mg Capsule] 300 mg PO BID #20 cap 10/18/21 Promethazine/Dextromethorphan 5 ml PO Q6HP PRN #240 ml 10/18/21 [Promethazine-Dm Syrup] methylPREDNISolone [Medrol] 4 mg PO DIRECTED 6 Days #21 10/18/21 packet Allergies Allergy/AdvReac Type Severity Reaction Status Date / Time No Known Allergies Allergy Verified 10/18/21 08:39 - Worker's Comp Is this a Worker's Comp case?: No [facility] History - Hepatitis A Screen Attestation statement:: This patient has been screened for Hepatitis A risk factors. I have reviewed the patient's past medical history: Yes Medical History: Reports:: Cancer (skin left arm) Denies:: Diabetes Mellitus Type 1, Diabetes Mellitus Type 2, Hypertension, Internal Pacemaker, MRSA, Urinary Tract Infection Other Surgeries: No: Pacemaker Amputation: No Fractures: No - Social History Smoking Status: Never smoker Alcohol Intake: never Occupational Status: employed Housing: house Household Members: spouse, family Family Hx:: Cancer, Diabetes, Hypertension ROS Obtained: Yes All systems reviewed & no additional complaints - Constitutional Constitutional: Reports as per HPI - Eyes Eyes: Denies eye discharge - ENT Ears, Nose, Mouth, and Throat: Reports as per HPI - Cardiovascular Cardiovascular: Denies chest pain - Respiratory Respiratory: Reports chest congestion, Reports cough Physical Exam - General General appearance: alert,
[2021-10-18 09:23] VITALS: BP 110/66; PULSE 85; RESP 17; TEMP 36.8
== END 2021-10-18 09:24 | disposition home or self-care (01) ==
PROVIDERS: Emergency Provider Nurse Practitioner Family; PCP Internal Medicine
DX: J40 Bronchitis, not specified as acute or chronic (principal); J01.90 Acute sinusitis, unspecified
CPT/HCPCS: 99212; G0463

== ENCOUNTER 2022-01-25 11:20 | Emergency (ER) | payer OTHER, SELFPAY ==
[2022-01-25 11:46] VITALS: BP 132/91; PULSE 91; RESP 18; TEMP 36.7; O2SAT 96; BMI 27.4
--- NOTE | 2022-01-25 12:08 | EXP.UTC ---
Discharge Plan Disposition Patient Disposition: Home, Self-Care Condition: Good Prescriptions Prescriptions: No Action lisinopril-hydrochlorothiazide 0 tablet 1 tab PO DAILY promethazine-DM 120 ML syrup 5 ml PO Q6HP PRN (Reason: Cough) Qty: 240 0RF methylprednisolone 4 MG tablets,dose pack 4 mg PO DIRECTED 6 Days Qty: 21 0RF cefdinir 300 MG capsule 300 mg PO BID Qty: 20 0RF Referrals Follow up/Referrals: Ramon Aldana MD [Primary Care Provider] - See instructions Activity Restrictions/Add. Instructions Additional Instructions/Restrictions: *Monitor Temp, Over the counter Motrin or Tylenol as directed/as needed Tylenol every 4 hours and Motrin every 6 hours (as long as your family doctor has told you that you can take it) for fever or pain. and straight to ER if unable to lower temp less than 101.0 after medication given *Warm salt water gargles may help to soothe the throat *Throat Lozenges? *Warm fluids like tea with honey may help to soothe the throat? *Sleep elevated *Humidifier/Vaporizer Follow up IMMEDIATELY for new or worsening symptoms or no Noticeable improvement over the next 48-72 hours. 911 for difficulty breathing or swallowing You were tested for today for COVID19 your test result should be back in the next 24-48 hours, you may check your results on the [facility] Make sure to take your Vitamins Vit. C Vit D and Zinc if you can take them Clinical Impressions Clinical Impression: Viral upper respiratory tract infection Stand Alone Forms Stand Alone Forms: Work/School Release Instructions Patient Instructions: Sore Throat, DI for Viral Upper Respiratory Infection -- Adult Discharge ED Provider: Jackelyn Marie [facility] General Stated complaint: [place], [place], Congestion, covid test Mode of Arrival: Ambulatory Source of Information: Patient Limitations: No Limitations Time Seen by Provider: 01/25/22 12:08 Description of Symptoms (Recalled from Triage Doc. by RN): pt comes in with c/o body aches, headache, head congestion. symptoms began a few days ago HEENT Symptoms (Recalled from RN notes): Yes Resp Symptoms (Recalled from RN notes): Yes Skin Symptoms (Recalled from RN notes): No MS Symptoms (Recalled from RN notes): No Functional Status (Recalled from RN notes): n/a History of Present Illness Provider Complaint: Patient states that a couple days ago she started feeling bad States that she has been having head congestion, body aches, and chills States that today she was still feeling bad and she was worried that she may have COVID or something so she came in to get checked out Related Data Home Medications Medication Instructions Recorded Confirmed lisinopril 10 1 tab PO DAILY BLOOD PRESSURE 11/23/18 01/08/21 mg-hydrochlorothiazide 12.5 mg tablet Previous Rx's Medication Instructions Recorded cefdinir 300 mg capsule 300 mg PO BID #20 caps 10/18/21 methylprednisolone 4 mg tablets in 4 mg PO DIRECTED 6 days #21 10/18/21 a dose pack packets promethazine-DM 6.25 mg-15 mg/5 mL 5 ml PO Q6HP PRN Cough #240 mL 10/18/21 oral syrup Allergies Allergy/AdvReac Type Severity Reaction Status Date / Time No Known Allergies Allergy Verified 01/25/22 11:49 Worker's Comp Is this a Worker's Comp case?: No PFSH PFSH Social History Smoking Status: Never smoker second hand exposure: No alcohol intake: never current occupational status: employed Travel in the last 8 weeks: None household members: spouse and family housing: house current occupation: environmental services current occupational exposures/hazards: Yes caffeine: Yes ROS Obtained: Yes All systems reviewed & no additional complaints except as documented and Yes Systems reviewed as appropriate & no additional complaints except as documented Constitutional Constitutional: Reports system reviewed and no addit
[2022-01-25 12:23] LABS: UTC Influenza A Antigen Negative (Negative); UTC Influenza B Antigen Negative (Negative)
[2022-01-25 12:40] VITALS: BP 132/91; PULSE 91; RESP 18; TEMP 36.7
== END 2022-01-25 12:40 | disposition home or self-care (01) ==
PROVIDERS: Emergency Provider Nurse Practitioner; PCP Internal Medicine
DX: J06.9 Acute upper respiratory infection, unspecified (principal); M79.10 Myalgia, unspecified site; R51.9 Headache, unspecified; Z20.822 Contact with and (suspected) exposure to COVID-19; Z79.52 Long term (current) use of systemic steroids; Z79.899 Other long term (current) drug therapy
CPT/HCPCS: 87804; 99213; C9803; G0463; U0003; U0005

== ENCOUNTER → 2022-02-16 15:54 | Outpatient (POV) | payer OTHER, SELFPAY | PROVIDERS: Visit Provider Dermatology | DX: Z00.00 Encounter for general adult medical examination without abnormal findings (principal) ==

== ENCOUNTER 2022-03-02 07:29 | Emergency (ER) | payer OTHER, SELFPAY ==
[2022-03-02 07:30] VITALS: BP 148/70; PULSE 77; RESP 18; TEMP 36.6; O2SAT 98; BMI 29.2
--- NOTE | 2022-03-02 07:35 | PC.NURSE ---
lab called to come draw blood
--- NOTE | 2022-03-02 07:44 | PC.NURSE ---
notified house wirer Cb NARAYANAN of needle stick
--- NOTE | 2022-03-02 07:56 | PC.NURSE ---
lab at the bedside
[2022-03-02 08:00] VITALS: BP 124/61; PULSE 82; O2SAT 97
[2022-03-02 08:11] LABS: Basophils # 0.1 K/mm3 (0-0.2); Basophils % 1.3 % (0.1-2.0); Eosinophils # 0.2 K/mm3 (0.0-0.4); Eosinophils % 3.2 % (0.1-12.0); Hematocrit 44.3 % (37.0-47.0); Hemoglobin 14.7 g/dL (12.2-16.2); Lymphocytes # 2.2 K/mm3 (0.7-4.5); Lymphocytes % 31.6 % (10-50); Mean Corpuscular HGB Conc 33.1 g/dL (31.8-35.4); Mean Corpuscular Volume 93.6 fl (81-99); Mean Platelet Volume 7.4 fl (7.4-10.4); Monocytes # 0.2 K/mm3 (0.1-1.0); Monocytes % 3.4 % (1.7-9.3); Neutrophils # 4.3 K/mm3 (1.8-7.8); Neutrophils % 60.5 % (37.0-80.0); Platelet Count 245 K/mm3 (142-424); Red Blood Count 4.73 M/mm3 (4.20-5.40); Red Cell Distribution Width 12.7 % (11.5-17.5)
[2022-03-02 08:15] LABS: Alanine Aminotransferase 23 U/L (12-78); Albumin Level 4.6 g/dl (3.5-5.0); Alkaline Phosphatase 106 U/L (38-126); Aspartate Amino Transferase 27 U/L (14-36); Bilirubin,Direct 0.1 mg/dl (0.0-0.4); Bilirubin,Indirect 0.3 mg/dL (0.0-0.9); Bilirubin,Total 0.4 mg/dl (0.2-1.3); Bilirubin,Unconjugated 0.3 mg/dL (0.0-1.1)
[2022-03-02 08:18] LABS: Activated Partial Thrombo Time 27.3 seconds (22.8-30.6); INR 0.93 (0.9-1.1); Prothrombin Time 10.1 seconds (10.1-12.5)
--- NOTE | 2022-03-02 08:22 | HMH.EDGENADL ---
Discharge Plan Disposition Patient Disposition: Home, Self-Care Condition: Good Prescriptions Prescriptions: No Action lisinopril-hydrochlorothiazide 0 tablet 1 tab PO DAILY promethazine-DM 120 ML syrup 5 ml PO Q6HP PRN (Reason: Cough) Qty: 240 0RF methylprednisolone 4 MG tablets,dose pack 4 mg PO DIRECTED 6 Days Qty: 21 0RF cefdinir 300 MG capsule 300 mg PO BID Qty: 20 0RF Referrals Follow up/Referrals: Ramon Aldana MD [Primary Care Provider] - See instructions Activity Restrictions/Add. Instructions Additional Instructions/Restrictions: You will follow-up with infection control for repeat testing per their protocol. Gently cleanse wound daily with rubbing alcohol followed by irrigation with soapy water. Return for increasing redness to the area or other concerns. Clinical Impressions Clinical Impression: Needlestick injury due to hypodermic needle Instructions Patient Instructions: DI for Skin Abscess Discharge ED Provider: Rom Chen General Adult HPI General Chief complaint: Skin/Abscess/Foreign Body Stated complaint: 03/02@work 0630 RT index finger needle stick Time Seen by Provider: 03/02/22 07:50 Mode of Arrival: Ambulatory Source of Information: Patient Limitations: No Limitations Description of Symptoms (Recalled from ER Triage Doc. by RN): c/o right index finger needle stick. 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 The source has been identified however it is unclear as to whether or not this was a contaminated needle. Injury was sustained to the right index finger no additional injuries are noted. Patient has minimal discomfort to the area. The source patient was thought to be HIV negative. Related Data Home Medications Medication Instructions Recorded Confirmed lisinopril 10 1 tab PO DAILY BLOOD PRESSURE 11/23/18 01/08/21 mg-hydrochlorothiazide 12.5 mg tablet Previous Rx's Medication Instructions Recorded cefdinir 300 mg capsule 300 mg PO BID #20 caps 10/18/21 methylprednisolone 4 mg tablets in 4 mg PO DIRECTED 6 days #21 10/18/21 a dose pack packets promethazine-DM 6.25 mg-15 mg/5 mL 5 ml PO Q6HP PRN Cough #240 mL 10/18/21 oral syrup Allergies Allergy/AdvReac Type Severity Reaction Status Date / Time No Known Allergies Allergy Verified 01/25/22 11:49 PFSH PFSH Social History Smoking Status: Never smoker second hand exposure: No alcohol intake: never current occupational status: employed Travel in the last 8 weeks: None household members: spouse and family housing: house current occupation: environmental services current occupational exposures/hazards: Yes caffeine: Yes ROS Obtained: Yes All systems reviewed & no additional complaints except as documented Physical Exam General General appearance: alert Head Head exam: atraumatic Eye Eye exam: Present normal appearance ENT ENT exam: Present normal exam Neck Neck exam: Present normal inspection Chest Chest inspection: Present normal inspection Respiratory Respiratory exam: Present normal lung sounds bilaterally Cardiovascular Cardiovascular exam: Present regular rate and normal rhythm Abdominal Exam Abdominal exam: Present soft; Absent tenderness Extremities Exam Extremities exam: Present normal inspection and other (To the tip of the right index finger there is minute lesion consistent with needlestick injury. There is no active bleeding or surrounding erythema or edema.) Back Exam Back exam: Present normal inspection Neurological Exam Neurological exam: Present alert and oriented X3 Psychiatric Psychiatric exam: Present normal affect Skin Skin exam: Present warm and dry Lymphatic Lymphatic Findings: no adenopathy Medical Decision Making Medical Records Medical records reviewed: Yes I reviewed the patien
[2022-03-02 08:30] VITALS: BP 124/61; PULSE 82; RESP 19; TEMP 36.6; O2SAT 97
[2022-03-21 18:03] LABS: HIV Screen 4th Generation wRfx Non Reactive
[2022-03-21 18:04] LABS: Hepatitis B Surface Antigen Negative
[2022-03-21 18:05] LABS: Hepatitis B Surf Ab Quant <3.1; Hepatitis C Antibody <0.1
== END 2022-03-02 08:32 | disposition home or self-care (01) ==
PROVIDERS: Emergency Provider Emergency Medicine; PCP Internal Medicine
DX: S61.239A Puncture wound without foreign body of unspecified finger without damage to nail, initial encounter (principal); W46.0XXA Contact with hypodermic needle, initial encounter; Y93.89 Activity, other specified; Y92.239 Unspecified place in hospital as the place of occurrence of the external cause; Z23 Encounter for immunization
CPT/HCPCS: 80076; 85025; 85610; 85730; 86703; 86706; 87340; 87380; 90471; 90715; 99283; G0432

== ENCOUNTER 2022-03-19 07:24 | Emergency (ER) | payer OTHER, SELFPAY ==
[2022-03-19 07:25] VITALS: BP 134/74; PULSE 86; RESP 18; TEMP 36.5; O2SAT 98; BMI 29.2
--- NOTE | 2022-03-19 07:38 | PC.NURSE ---
called lab for employee drug screen for pt
--- NOTE | 2022-03-19 08:00 | PC.NURSE ---
lab at the bedside
--- NOTE | 2022-03-19 08:15 | HMH.EDGENADL ---
Discharge Plan Disposition Patient Disposition: Home, Self-Care Condition: Good Prescriptions Prescriptions: New ibuprofen 800 mg tablet 800 mg PO Q8HP PRN (Reason: moderate pain ) Qty: 15 0RF No Action lisinopril-hydrochlorothiazide 0 tablet 1 tab PO DAILY promethazine-DM 120 ML syrup 5 ml PO Q6HP PRN (Reason: Cough) Qty: 240 0RF methylprednisolone 4 MG tablets,dose pack 4 mg PO DIRECTED 6 Days Qty: 21 0RF cefdinir 300 MG capsule 300 mg PO BID Qty: 20 0RF Referrals Follow up/Referrals: Ramon Aldana MD [Primary Care Provider] - See instructions Activity Restrictions/Add. Instructions Additional Instructions/Restrictions: Ibuprofen as prescribed. Heat 20 minutes 3-4 times a day. Additional instructions for BACK PAIN: See your physician as soon as possible for further evaluation. Return immediately if back pain becomes intolerable, or if fever, numbness or weakness of your legs, loss of control of your bowels or bladder. Clinical Impressions Clinical Impression: Strain of thoracic back region Stand Alone Forms Stand Alone Forms: Work/School Release Instructions Patient Instructions: DI for Thoracic Back Pain Discharge ED Provider: Dami Harris General Adult HPI General Chief complaint: PAIN Stated complaint: Back pain from pulling cart @work 03/19 0600 Time Seen by Provider: 03/19/22 08:08 Mode of Arrival: Ambulatory Source of Information: Patient Limitations: No Limitations Description of Symptoms (Recalled from ER Triage Doc. by RN): c/o upper back popping and hurting after pulling bed linens. Thinks she pulled a muscle. History of Present Illness HPI narrative: Patient states that she was pulling some linen out of a cart when she felt a pain in her right paraspinal thoracic back. Persistent pain since. Injury occurred at 6:30 AM. Pain increases with twisting bending and breathing. No previous back problems. She took some Tylenol prior to arrival. Related Data Home Medications Medication Instructions Recorded Confirmed lisinopril 10 1 tab PO DAILY BLOOD PRESSURE 11/23/18 01/08/21 mg-hydrochlorothiazide 12.5 mg tablet Previous Rx's Medication Instructions Recorded cefdinir 300 mg capsule 300 mg PO BID #20 caps 10/18/21 methylprednisolone 4 mg tablets in 4 mg PO DIRECTED 6 days #21 10/18/21 a dose pack packets promethazine-DM 6.25 mg-15 mg/5 mL 5 ml PO Q6HP PRN Cough #240 mL 10/18/21 oral syrup ibuprofen 800 mg tablet 800 mg PO Q8HP PRN moderate pain 03/19/22 #15 tabs Allergies Allergy/AdvReac Type Severity Reaction Status Date / Time No Known Allergies Allergy Verified 01/25/22 11:49 [facility] Disclaimer: The information contained in this section may have been updated after the patient was seen, as this information can be updated by other users. Social History Smoking Status: Never smoker second hand exposure: No alcohol intake: never current occupational status: employed Travel in the last 8 weeks: None household members: spouse and family housing: house current occupation: environmental services current occupational exposures/hazards: Yes caffeine: Yes ROS Obtained: Yes Systems reviewed as appropriate & no additional complaints except as documented Constitutional Constitutional: Denies weakness Musculoskeletal Musculoskeletal: Reports back pain, Denies numbness and Denies radiating pain into limb Neurologic Neurologic: Denies numbness and Denies weakness Physical Exam General General appearance: alert and in no apparent distress Comment: Uncomfortable with movement, but also grimaces while sitting still. Chest Chest inspection: Present normal inspection and symmetric chest wall rise Respiratory Respiratory exam: Present normal lung sounds bilaterally; Absent respiratory distress Cardiovascular Cardiovascular exam: Present regu
[2022-03-19 08:59] VITALS: BP 116/63; PULSE 74; RESP 16; TEMP 36.9; O2SAT 98
== END 2022-03-19 09:02 | disposition home or self-care (01) ==
PROVIDERS: Emergency Provider Emergency Medicine; PCP Internal Medicine
DX: S29.012A Strain of muscle and tendon of back wall of thorax, initial encounter (principal)
CPT/HCPCS: 99282

== ENCOUNTER → 2022-03-19 10:26 | Outpatient (CLI) | payer OTHER, SELFPAY ==
--- NOTE | 2022-03-19 10:35 | XR_ITS ---
FINAL REPORT CLINICAL HISTORY: RT THORACIC PAIN,POST PULLING INJURY FINDINGS: 3 views of the right ribs were obtained. There are no rib fractures. There is no pleural fluid collection or pneumothorax. A single view of the chest demonstrates no acute cardiopulmonary process. IMPRESSION: Unremarkable right rib series. Reviewed, Interpreted and Dictated by Levon Anderson MD Transcribed by Cristopher Carrillo Authenticated and [facility]
--- NOTE | 2022-03-19 10:37 | XR_ITS ---
FINAL REPORT CLINICAL HISTORY: RT THORACIC PAIN,POST PULLING INJURY COMPARISON: 08/19/2020 FINDINGS: TWO-VIEW CHEST The heart size is normal. The mediastinum is normal. The lungs are clear. There is no pneumothorax. IMPRESSION: No acute cardiopulmonary process. Reviewed, Interpreted and Dictated by Levon Anderson MD Transcribed by Carole Momin Authenticated and [facility]
== END ==
PROVIDERS: PCP Internal Medicine; Visit Provider Internal Medicine
DX: M54.6 Pain in thoracic spine (principal)
CPT/HCPCS: 71046; 71100

== ENCOUNTER 2022-06-24 12:13 | Emergency (ER) | payer OTHER, SELFPAY ==
[2022-06-24 12:20] VITALS: BP 128/68; PULSE 79; RESP 22; TEMP 37; O2SAT 97; BMI 29.9
--- NOTE | 2022-06-24 12:25 | EXP.UTC ---
Discharge Plan Disposition Patient Disposition: Home, Self-Care Condition: Good Prescriptions Prescriptions: New benzonatate [benzonatate] 100 mg capsule 100 mg PO TIDP PRN (Reason: Cough) Qty: 30 0RF ondansetron 4 mg Tablet,Disintegrating 4 mg PO Q8H PRN (Reason: Nausea) Qty: 20 0RF No Action lisinopril-hydrochlorothiazide 0 tablet 1 tab PO DAILY ibuprofen 800 mg tablet 800 mg PO Q8HP PRN (Reason: moderate pain ) Qty: 15 0RF promethazine-DM 120 ML syrup 5 ml PO Q6HP PRN (Reason: Cough) Qty: 240 0RF methylprednisolone 4 MG tablets,dose pack 4 mg PO DIRECTED 6 Days Qty: 21 0RF cefdinir 300 MG capsule 300 mg PO BID Qty: 20 0RF Referrals Follow up/Referrals: Ramon Aldana MD [Primary Care Provider] - See instructions Activity Restrictions/Add. Instructions Additional Instructions/Restrictions: Drink plenty of fluids. Take tylenol or ibuprofen for pain or fever. Take the medications as directed. Follow up with your regular doctor. GO TO THE ER FOR ANY WORSENING SYMPTOMS Quarantine until you know the results of your covid-19 test. Notify your school or workplace of your results and follow their instructions regarding return to work/school. Clinical Impressions Clinical Impression: Acute viral syndrome Stand Alone Forms Stand Alone Forms: Work/School Release Instructions Patient Instructions: DI for Viral Syndrome Discharge ED Provider: Estiven Payton [facility] General Stated complaint: Covid test, exposure, headache fever bodyaches Time Seen by Provider: 06/24/22 12:25 History of Present Illness Provider Complaint: She states that for the past 2 days she had progressively worsening fatigue, body aches, and malaise. She has had a low grade fever also. Related Data Home Medications Medication Instructions Recorded Confirmed lisinopril 10 1 tab PO DAILY BLOOD PRESSURE 11/23/1801/08/ mg-hydrochlorothiazide 12.5 mg tablet Previous Rx's Medication Instructions Recorded cefdinir 300 mg capsule 300 mg PO BID #20 caps 10/18/21 methylprednisolone 4 mg tablets in 4 mg PO DIRECTED 6 days #21 10/18/21 a dose pack packets promethazine-DM 6.25 mg-15 mg/5 mL 5 ml PO Q6HP PRN Cough #240 mL 10/18/21 oral syrup ibuprofen 800 mg tablet 800 mg PO Q8HP PRN moderate pain 03/19/22 #15 tabs benzonatate 100 mg capsule 100 mg PO TIDP PRN Cough #30 caps 06/24/22 ondansetron 4 mg disintegrating 4 mg PO Q8H PRN Nausea #20 tabs 06/24/22 tablet Allergies Allergy/AdvReac Type Severity Reaction Status Date / Time No Known Allergies Allergy Verified 01/25/22 11:49 [facility] Disclaimer: The information contained in this section may have been updated after the patient was seen, as this information can be updated by other users. Social History Smoking Status: Never smoker second hand exposure: No alcohol intake: never current occupational status: employed Travel in the last 8 weeks: None household members: spouse and family housing: house current occupation: environmental services current occupational exposures/hazards: Yes caffeine: Yes ROS Obtained: Yes All systems reviewed & no additional complaints except as documented Constitutional Constitutional: Reports chills and Reports fever(s) Eyes Eyes: Denies eye discharge ENT Ears, Nose, Mouth, and Throat: Reports as per HPI Cardiovascular Cardiovascular: Denies chest pain Respiratory Respiratory: Denies chest congestion and Reports cough Gastrointestinal Gastrointestingal: Reports nausea; Denies abdominal pain, constipation, cramping, diarrhea or vomiting Musculoskeletal Musculoskeletal: Denies arthralgias Integumentary/Breasts Skin/Breast: Denies rash Neurologic Neurologic: Denies paresthesias Physical Exam General General appearance: alert and in no apparent distress Head Head exam: atraumatic, nor
[2022-06-24 12:46] LABS: UTC Strep Screen (Rapid) Negative (Negative)
[2022-06-24 13:32] VITALS: BP 128/68; PULSE 79; RESP 22; TEMP 37; O2SAT 97
== END 2022-06-24 13:36 | disposition home or self-care (01) ==
PROVIDERS: Emergency Provider Nurse Practitioner Family; PCP Internal Medicine
DX: R51.9 Headache, unspecified (principal); R53.83 Other fatigue; R50.9 Fever, unspecified; Z20.822 Contact with and (suspected) exposure to COVID-19
CPT/HCPCS: 87880; 99212; 99214; C9803; G0463; U0003; U0005

== ENCOUNTER 2022-08-31 19:45 | Emergency (ER) | payer OTHER, SELFPAY ==
[2022-08-31 19:52] VITALS: BP 139/80; PULSE 74; RESP 18; TEMP 36.8; O2SAT 99; BMI 29.2
--- NOTE | 2022-08-31 20:01 | EXP.UTC ---
Discharge Plan Disposition Patient Disposition: Home, Self-Care Condition: Good Prescriptions Prescriptions: New cyclobenzaprine 10 mg Tablet 10 mg PO BID PRN (Reason: Muscle Spasm) Qty: 20 0RF methylprednisolone 4 mg Tablets,Dose Pack 4 mg PO DIRECTED Qty: 21 0RF No Action lisinopril-hydrochlorothiazide 0 tablet 1 tab PO DAILY ibuprofen 800 mg tablet 800 mg PO Q8HP PRN (Reason: moderate pain ) Qty: 15 0RF benzonatate [benzonatate] 100 mg capsule 100 mg PO TIDP PRN (Reason: Cough) Qty: 30 0RF ondansetron 4 mg Tablet,Disintegrating 4 mg PO Q8H PRN (Reason: Nausea) Qty: 20 0RF promethazine-DM 120 ML syrup 5 ml PO Q6HP PRN (Reason: Cough) Qty: 240 0RF methylprednisolone 4 MG tablets,dose pack 4 mg PO DIRECTED 6 Days Qty: 21 0RF cefdinir 300 MG capsule 300 mg PO BID Qty: 20 0RF Referrals Follow up/Referrals: Ramon Aldana MD [Primary Care Provider] - See instructions Activity Restrictions/Add. Instructions Additional Instructions/Restrictions: Go home and rest. It would be best if you rested tomorrow too. No heavy lifting. No twisting. Take the oral medications as directed. The muscle relaxer (cyclobenzaprine--Flexeril) will make you drowsy, so don't drive or operate heavy machinery after taking it. Don't start the oral steroids (medrol dose pack) until tomorrow, since you had the shots in here today. Follow up with your regular doctor. GO TO THE ER FOR ANY WORSENING SYMPTOMS OR CONCERN, ESPECIALLY BOWEL OR BLADDER ISSUES, SADDLE AREA NUMBNESS, FEVER, ETC Clinical Impressions Clinical Impression: Back pain with right-sided sciatica Stand Alone Forms Stand Alone Forms: Work/School Release Instructions Patient Instructions: DI for Sciatica, Sciatica, Ketorolac Injection, Methylprednisolone Injection Discharge ED Provider: Estiven Payton [facility] General Stated complaint: pain right lower side and leg Mode of Arrival: Ambulatory Source of Information: Patient Limitations: No Limitations Time Seen by Provider: 08/31/22 20:01 HEENT Symptoms (Recalled from RN notes): No Resp Symptoms (Recalled from RN notes): No Skin Symptoms (Recalled from RN notes): No MS Symptoms (Recalled from RN notes): Yes Functional Status (Recalled from RN notes): wnl History of Present Illness Provider Complaint: pt c/o R hip pain that radiates down her leg x2wk Related Data Home Medications Medication Instructions Recorded Confirmed lisinopril 10 1 tab PO DAILY BLOOD PRESSURE 11/23/18 01/08/21 mg-hydrochlorothiazide 12.5 mg tablet Previous Rx's Medication Instructions Recorded cefdinir 300 mg capsule 300 mg PO BID #20 caps 10/18/21 methylprednisolone 4 mg tablets in 4 mg PO DIRECTED 6 days #21 10/18/21 a dose pack packets promethazine-DM 6.25 mg-15 mg/5 mL 5 ml PO Q6HP PRN Cough #240 mL 10/18/21 oral syrup ibuprofen 800 mg tablet 800 mg PO Q8HP PRN moderate pain 03/19/22 #15 tabs benzonatate 100 mg capsule 100 mg PO TIDP PRN Cough #30 caps 06/24/22 ondansetron 4 mg disintegrating 4 mg PO Q8H PRN Nausea #20 tabs 06/24/22 tablet cyclobenzaprine 10 mg tablet 10 mg PO BID PRN Muscle Spasm #20 08/31/22 tabs methylprednisolone 4 mg tablets in 4 mg PO DIRECTED #21 tabs 08/31/22 a dose pack Allergies Allergy/AdvReac Type Severity Reaction Status Date / Time No Known Allergies Allergy Verified 08/31/22 19:54 Worker's Comp Is this a Worker's Comp case?: No [facility] Disclaimer: The information contained in this section may have been updated after the patient was seen, as this information can be updated by other users. Social History Smoking Status: Never smoker second hand exposure: No alcohol intake: never current occupational status: employed Travel in the last 8 weeks: None household members: spouse and family housing: house current occupation: e
[2022-08-31 20:06] VITALS: BP 139/80; PULSE 74; RESP 18; TEMP 36.8
== END 2022-08-31 20:08 | disposition home or self-care (01) ==
PROVIDERS: Emergency Provider Nurse Practitioner Family; PCP Internal Medicine
DX: M54.31 Sciatica, right side (principal)
CPT/HCPCS: 96372; 99212; 99214; G0463

== ENCOUNTER → 2022-09-15 15:26 | Outpatient (CLI) | payer OTHER, SELFPAY | PROVIDERS: PCP Nurse Practitioner Family; Visit Provider Nurse Practitioner Family | DX: J02.9 Acute pharyngitis, unspecified (principal) | CPT/HCPCS: 87070 ==

== ENCOUNTER 2023-12-15 13:55 | Outpatient (CLI) | payer OTHER, SELFPAY ==
--- NOTE | 2023-12-15 13:56 | MM_ITS ---
PROCEDURE INFORMATION: Exam: US Left Breast, Complete MG Left Diagnostic Breast Tomosynthesis Exam date and time: 12/15/2023 2:55 PM Age: 48 years old Clinical indication: Due for annual screening mammogram. Patient reports left breast pain TECHNIQUE: Imaging protocol: Complete ultrasound of all four quadrants of the left breast and the retroareolar regions, including ultrasound of the axilla when performed. Left Diagnostic tomosynthesis and 2D mammography including computer-aided detection (CAD) when performed. Unilateral or bilateral exam. COMPARISON: MG MM DIG MAMM BI DX W/CAD 12/15/2023 1:46 PM FINDINGS: MAMMOGRAPHY: Bilateral screening mammographic views and left diagnostic views Breast composition: The breast is heterogeneously dense, which may obscure small masses. Stable benign-appearing calcifications are present. No new mass, architectural distortion, or suspicious calcifications have developed to suggest malignancy. No axillary adenopathy. ULTRASOUND: Breast ultrasound findings: Left 4 quadrant and retroareolar breast ultrasound and left axilla ultrasound Along the 6 o'clock axis 2 cm from the nipple, there is a irregular shadowing 0.6 x 0.9 x 0.7 cm solid mass Hypoechoic mostly circumscribed morphologically similar appearing structures are consistent with complicated cysts as follows: 0.6 cm left 2 o'clock 5 cm from the nipple 0.5 cm left 3 o'clock 3 cm from the nipple 0.4 cm retroareolar No axillary adenopathy IMPRESSION: Ultrasound-guided biopsy is recommended to definitively characterize a left 6 o'clock 0.9 cm solid irregular mass Six-month follow-up left breast ultrasound is recommended to reassess numerous morphologically similar appearing masses with features suggestive of complicated cysts ASSESSMENT: BI-RADS category 4: Suspicious
== END 2023-12-15 23:59 | disposition home or self-care (01) ==
LOC: RAD 13:56
PROVIDERS: PCP Internal Medicine; Visit Provider Internal Medicine
DX: N63.23 Unspecified lump in the left breast, lower outer quadrant (principal)
CPT/HCPCS: 76641; 77062; 77066; G0279

== ENCOUNTER 2023-12-27 12:48 | Outpatient (CLI) | payer OTHER, SELFPAY ==
--- NOTE | 2023-12-27 12:52 | CT_ITS ---
FINAL REPORT TECHNIQUE: Thin section axial CT images with coronal and sagittal reformats were performed after the administration of IV contrast. Coronal and sagittal reconstructions were performed. This study was performed with techniques to keep radiation doses as low as reasonably achievable (ALARA). Individualized dose reduction techniques using automated exposure control or adjustment of mA and/or kV according to the patient's size were employed. CLINICAL HISTORY: Left upper arm pain, history of melanoma COMPARISON: None FINDINGS: CT NECK SOFT TISSUE WITH AND WITHOUT CONTRAST: The skull base is unremarkable in appearance. The nasopharynx, oropharynx, hypopharynx, and larynx are all normal in appearance. The thyroid gland is unremarkable in appearance. There is mild mucosal thickening present in multiple paranasal sinuses without discrete air-fluid levels. There are multiple small cervical nodes, the largest a left jugulodigastric 15 mm node, favor reactive. No evidence of cervical mass or definite adenopathy is seen. IMPRESSION: Mild mucosal thickening in multiple paranasal sinuses without discrete air-fluid levels. Multiple small cervical nodes, the largest a left jugulodigastric 15 mm node, favor reactive. Reviewed, Interpreted and Dictated by Rg Soares III, MD Transcribed by Naheed Adkins Authenticated and [facility]
--- NOTE | 2023-12-27 12:52 | CT_ITS ---
FINAL REPORT TECHNIQUE: Thin section axial CT images with coronal and sagittal reformats were obtained through the neck before and after the administration of IV contrast. This study was performed with techniques to keep radiation doses as low as reasonably achievable (ALARA). Individualized dose reduction techniques using automated exposure control or adjustment of mA and/or kV according to the patient's size were employed. CLINICAL HISTORY: Left upper arm pain, history of melanoma COMPARISON: None FINDINGS: CT LEFT HUMERUS WITH AND WITHOUT CONTRAST: CT examination of the left humerus with and without intravenous contrast fails to reveal any evidence of fracture, or inhomogeneous marrow density. No destructive bony lesions are identified. There is mild degenerative change of the acromioclavicular joint. Postoperative changes are noted in the left axilla. There are small left axillary nodes present without definite adenopathy. IMPRESSION: Mild degenerative change of the acromioclavicular joint. The left humerus appears unremarkable. No significant left axillary adenopathy is identified. Reviewed, Interpreted and Dictated by Rg Soares III, MD Transcribed by Naheed Adkins Authenticated and [facility]
[2023-12-27 13:17] LABS: Blood Urea Nitrogen 18 mg/dl (7-17); Estimated Glomerular Filt Rate 106 ml/min (>60); GFR (African American) 129 ML/MIN (>60)
[2023-12-27] MEDS: IOPAMIDOL-370 (76%);100ML BOTTLE 140 ML IV (14:02)
[2023-12-27] MEDS: SODIUM CHLORIDE 0.9% 10ML SYR (RAD ONLY) 10 ML IV (14:02)
== END 2023-12-27 23:59 | disposition home or self-care (01) ==
LOC: RAD 12:49
PROVIDERS: PCP Internal Medicine; Visit Provider Internal Medicine
DX: Z85.820 Personal history of malignant melanoma of skin (principal); M79.622 Pain in left upper arm
CPT/HCPCS: 36415; 70492; 73202; 82565; 84520; Q9967

== ENCOUNTER 2024-01-16 08:08 | Outpatient (CLI) | payer OTHER, SELFPAY ==
--- NOTE | 2024-01-16 08:08 | US_ITS ---
FINAL REPORT CLINICAL HISTORY: Left lower quadrant breast lump-0.9 cm -- LT BREAST BX -- MAMMATOME -- DR. ZACH BARBA FINDINGS: ULTRASOUND-GUIDED LEFT BREAST CORE BIOPSY TECHNIQUE: Limited images were obtained to localize region of interest. The left was prepped in a routine sterile fashion and locally anesthetized with 1% lidocaine. Standard written informed consent was obtained. An 11-gauge vacuum assisted hand-held device was utilized. The needle was positioned posterior to the lesion. Multiple vacuum assisted core samples were obtained. The lesion was noted to be significantly smaller following biopsy. A biopsy marker clip was deployed in satisfactory position. Postbiopsy mammogram showed postbiopsy changes with clip in satisfactory position. Procedure was well tolerated . CONCLUSION: 1. Technically successful ultrasound guided core vacuum assisted biopsy of left breast lesion as above. 2. Biopsy marker clip deployed Authenticated and [facility]
== END 2024-01-16 23:59 | disposition home or self-care (01) ==
LOC: RAD 08:08
PROVIDERS: PCP Internal Medicine; Visit Provider Internal Medicine
DX: N63.23 Unspecified lump in the left breast, lower outer quadrant (principal)
CPT/HCPCS: 19083; 77065; C2618

== ENCOUNTER 2024-04-08 09:29 | Emergency (ER) | payer OTHER, SELFPAY ==
[2024-04-08 10:30] VITALS: BP 124/77; PULSE 90; RESP 22; TEMP 36.8; O2SAT 97; BMI 30.8
--- NOTE | 2024-04-08 10:40 | EXP.UTC ---
Discharge Plan Disposition Patient Disposition: Home, Self-Care Condition: Good Prescriptions Prescriptions: No Action lisinopril-hydrochlorothiazide 10-12.5 mg tablet See Rx Instructions .ROUTE .COMPLEX Qty: 90 1RF Dose Instruction: TAKE ONE TABLET BY MOUTH EVERY DAY IN THE MORNING FOR blood pressure Rx Instructions: TAKE ONE TABLET BY MOUTH EVERY DAY IN THE MORNING FOR blood pressure ibuprofen 800 mg tablet See Rx Instructions .ROUTE .COMPLEX Qty: 270 1RF Dose Instruction: TAKE ONE TABLET BY MOUTH THREE TIMES DAILY NEEDED FOR PAIN --TAKE WITH FOOD-- Rx Instructions: TAKE ONE TABLET BY MOUTH THREE TIMES DAILY NEEDED FOR PAIN --TAKE WITH FOOD-- Referrals Follow up/Referrals: Ramon Aldana MD [Primary Care Provider] - See instructions Activity Restrictions/Add. Instructions Additional Instructions/Restrictions: Too late to start Tamiflu. Most effective when started within 48 hours of symptoms onset Lots of rest Increase Fluids water, Gatorade, powerade, pedialyte,if infant/toddler/child Alternate Tylenol and / or ibuprofen as discussed for fever, aches, chills Follow up IMMEDIATELY with your family doctor for new or worsening Symptoms OR no noticeable improvement over the next 48-72 hours, 911 for difficulty or breathing You or your child area contagious until no fever, aches, chills for 24 hours with medication for symptoms Help Prevent the spread of influenza: ?Wash your hands often. Use soap and water. Wash your hands after you use the bathroom, change a child's diapers, or sneeze. Wash your hands before you prepare or eat food. Use gel hand cleanser that has 60% alcohol, when soap and water are not available. Do not touch your eyes, nose, or mouth unless you have washed your hands first. Cover your mouth when you sneeze or cough. Cough into a tissue or the bend of your arm. If you use a tissue, throw it away immediately and wash your hands. Clean shared items with a germ-killing street light cleaner. Clean table surfaces, doorknobs, and light switches. Do not share towels, silverware, and dishes with people who are sick. Wash bed sheets, towels, silverware, and dishes with soap and water. Wear a mask over your mouth and nose if you are sick. The face mask may help protect others from becoming infected with the flu. Wear the mask when in common areas of your home or if you seek care with a healthcare provider. Stay away from others if you are sick. Stay at home until 24 hours after your fever and symptoms are gone. Clinical Impressions Clinical Impression: Influenza A Stand Alone Forms Stand Alone Forms: Work/School Release Instructions Patient Instructions: DI for Influenza -- Adult, Influenza Print Language Print Language: Egyptian Discharge ED Provider: Jackelyn Marie [facility] [place] HPI General Stated complaint: cough, congestion, body aches Mode of Arrival: Ambulatory Source of Information: Patient Limitations: No Limitations Time Seen by Provider: 04/08/24 10:40 Description of Symptoms (Recalled from Triage Doc. by RN): PATIENT C/O COUGH, BODY ACHES, HEADACHE, CONGESTION AND FEVERS SINCE TUESDAY HEENT Symptoms (Recalled from RN notes): Yes Resp Symptoms (Recalled from RN notes): Yes Skin Symptoms (Recalled from RN notes): No MS Symptoms (Recalled from RN notes): No Functional Status (Recalled from RN notes): WNL History of Present Illness Provider Complaint: Patient states that she started feeling bad on with fever, chills, body aches, headache, and sinus congestion States today her body aches and chills seemed worse so she came in to get checked worried she may have the flu Related Data Previous Rx's ?Medication ?Instructions ?Recorded lisinopril 10 See Rx Instructions .Route 10/25/23 mg-hydrochlorothiazide 12.5 mg .COMPLEX #90 tabs tablet ibuprofen 800 mg tablet See Rx Instructions .Route 01/09/24 .COMPLEX #270 tabs Allergies Allergy/AdvReac Type Severity Reaction Status Date / Time No Known Allergies Allergy Verified 12/07/23 11:49 Worker's Comp Is this a Worker's Comp case?: No [facility] Disclaimer: The information contained in this section may have been updated after the patient was seen, as this information can be updated by other users. Medical History (Updated 04/08/24 @ 10:49 by Jackelyn Marie APRN) Cancer Hypertension Surgical History (Updated 04/08/24 @ 10:39 by Carolyne Abdullahi RN) History of section History of cholecystectomy Social History Smoking Status: Never smoker second hand exposure: No alcohol intake: never current occupational status: employed Travel in the last 8 weeks: None household members: spouse and family housing: house current occupation: environmental services current occupational exposures/hazards: Yes caffeine: Yes Have you lived/traveled outside US in past 30 days?: No Contact w/someone who lives/traveled outside US past 30 days?: No Exposure to someone with infectious disease in past 14 days?: No Do you have a fever (greater than 100.4 F or 38 C)?: No Have you tested positive for COVID-19: No Exposed to someone with COVID-19 in past 14 days?: No Do you have a sore throat?: Yes Do you have a cough?: Yes Do you have any weakness?: No Do you have any diarrhea?: No Are you experiencing any unusual bleeding?: No Do you have any muscle aches/pain?: No Do you have any abdominal pain?: No Are you experiencing loss of taste or smell?: No ROS Obtained: Yes All systems reviewed & no additional complaints except as documented and Yes Systems reviewed as appropriate & no additional complaints except as documented Constitutional Constitutional: Reports system reviewed and no additional complaints, except as documented, Reports as per HPI, Reports body ache, Reports chills, Reports fever(s) and Reports headache(s) ENT Ears, Nose, Mouth, and Throat: Reports system reviewed and no additional complaints, except as documented, Reports as per HPI, Reports headache(s), Reports nasal congestion and Reports nasal discharge Cardiovascular Cardiovascular: Reports system reviewed and no additional complaints, except as documented and Reports as per HPI Respiratory Respiratory: Reports system reviewed and no additional complaints, except as documented, Reports as per HPI and Reports cough Gastrointestinal Gastrointestingal: Reports system reviewed and no additional complaints, except as documented and as per HPI Neurologic Neurologic: Reports headache(s) Physical Exam General General appearance: alert and in no apparent distress ENT ENT exam: Present mucous membranes moist Expanded ENT Exam Nose exam: Absent sinus tenderness Throat exam: Present normal inspection Respiratory Respiratory exam: Present normal lung sounds bilaterally; Absent respiratory distress or wheezes Cardiovascular Cardiovascular exam: Present regular rate, normal rhythm and normal heart sounds Abdominal Exam Abdominal exam: Present soft and normal bowel sounds; Absent distention or tenderness Neurological Exam Neurological exam: Present alert, oriented X3 and normal gait Medical Decision Making Medical Records Screening: Per USPSTF and CDC recommendations, given the prevalence of disease in our region, it is our hospital?s policy to screen for HIV and viral Hepatitis for all patients aged 18 and over and those with ongoing risk factors. Kvng Inquiry Pt receiving controlled substance: No Kvng was queried for this patient: No Vital Signs: 04/08/24 10:30 Temperature 98.3 F Temperature Source Oral Pulse Rate [Left Brachial] 90 Respiratory Rate 22 Blood Pressure [Left Arm] 124/77 Blood Pressure Mean [Left Arm] 92 Blood Pressure Source [Left Arm] Automatic Cuff Blood Pressure Position [Left Arm] Sitting 02 Sat by Pulse Oximetry 97 Oxygen Delivery Method Room Air Lab Data Lab results reviewed: Yes I reviewed the patient's lab results.
[2024-04-08 10:42] LABS: UTC Influenza A Antigen Positive (Negative); UTC Influenza B Antigen Negative (Negative)
[2024-04-08 10:53] VITALS: BP 124/77; PULSE 90; RESP 22; TEMP 36.8; O2SAT 97
== END 2024-04-08 10:56 | disposition home or self-care (01) ==
PROVIDERS: Emergency Provider Nurse Practitioner; PCP Internal Medicine
DX: J09.X2 Influenza due to identified novel influenza A virus with other respiratory manifestations (principal)
CPT/HCPCS: 87804; 99213; G0381

== ENCOUNTER 2024-09-11 16:32 | Outpatient (CLI) | payer OTHER, SELFPAY ==
--- NOTE | 2024-09-11 16:35 | XR_ITS ---
FINAL REPORT TECHNIQUE: Chest PA & Lateral CLINICAL HISTORY: Hemoptysis, cough COMPARISON: 03/19/2022 FINDINGS: 2 views of the chest were performed. The heart size is normal. The mediastinum is within normal limits. There is no acute cardiopulmonary process. There are no pleural effusions. There is no pneumothorax. The bony thorax appears intact. Surgical clips seen anteriorly on the lateral view appear to be in the left axilla. IMPRESSION: No acute cardiopulmonary process. Reviewed, Interpreted and Dictated by Levon Anderson MD Transcribed by Kathie Diane Authenticated and [facility]
== END 2024-09-11 23:59 | disposition home or self-care (01) ==
LOC: RAD 16:33
PROVIDERS: PCP Internal Medicine; Visit Provider Internal Medicine
DX: R04.2 Hemoptysis (principal); R05.9 Cough, unspecified
CPT/HCPCS: 71046

== ENCOUNTER 2024-11-29 13:27 | Outpatient (CLI) | payer OTHER, SELFPAY ==
--- NOTE | 2024-11-29 13:29 | XR_ITS ---
FINAL REPORT TECHNIQUE: 3 views lumbar spine CLINICAL HISTORY: Left lumbar back pain since November 20. Was lifting large amounts of heavy bags. COMPARISON: None FINDINGS: LUMBAR SPINE: AP and lateral views of the lumbar spine were obtained. There is no prior exam for comparison. There is no acute fracture or malalignment. Vertebral body height is preserved. Disc space height is preserved. Minimal endplate spurring is noted in the upper lumbar region. No acute paraspinal abnormality. IMPRESSION: No acute bony abnormality identified. Reviewed, Interpreted and Dictated by Maren Rico MD Transcribed by Naheed Adkins Authenticated and [facility]
--- OUTSIDE RECORDS SUMMARY | 2024-11-29 13:46 | XMS_ITS | Clinical Summary ---
[facility] Organization [facility] Address [address] [place] [address] Care Team Providers Care Lamina Searcher Name Role Phone Ramon Aldana MD Primary Care Provider [phone] Allergies No known active allergies Medications lisinopril-hydr ochlorothiazide (PRINZIDE,ZESTO RETIC) 10-12.5 MG per tablet Take 1 tablet by mouth Daily. Active HYDROcodone-fabiola taminophen (NORCO) 7.5-325 MG per tabletIndicatio ns:Melanoma of left upper arm Take 1-2 tablets by mouth Every 4 (Four) Hours As Needed for Moderate Pain (pain). 10 tablet 02/07/2020 Active Social History Tobacco Use Types Packs/Day Years Used Date Smoking Tobacco: Never Smokeless Tobacco: Never Alcohol Use Standard Drinks/Week Comments Not Currently 0 (1 standard drink = 0.6 oz pur e alcohol) Abuse Screen Answer Date Recorded Unsafe at Home or Work/School Not on file Feels Threatened by Someone? Not on file 03/2023 Does Anyone Keep You from Co ntacting Others or Doint Things Outside the Home? Not on file 01/27/2023 Physical Sign of Abuse Present Not on file 1 Housing Stability Answer Date Recorded Current Living Arrangements Not on file 01/16 Potentially Unsafe Housing Conditions Not on herber e 01/27/2023 Family and Community Support Answer Thee e Recorded Help with Day-to-Day Activities Not on file 01/27/2023 Lonely or Isolated Not on file 01/27/2023 Employment Answer Date Recorded Do you want help finding or keeping work or a myles b? Not on file 01/27/2023 Disabilities Answer Date Recorded Concentrating, Remembering, or Making Decisions Difficulty Not on file 01/27/2023 Doing Errands Independently Difficulty Not on fi le 01/27/2023 Education Answer Date Recorded Help with school or training? Not on file Preferred Language Not on file 01/27/2023 Comments No Sex and Gender Information Value Date Recorded Sex Assigned at Not on file Legal Sex Female 12:05 PM EDT Gender Identity Not on file Sexual Orientation Not on file Last Filed Vital Signs Vital Sign Reading Time Taken Comments Blood Pressure 129/74 02/07/2020 3:40 PM EDT Pulse 79 02/07/2020 3:45 PM EDT Temperature 36.9 C (98.5 F) 02/07/2020 3:40 PM EDT Respiratory Rate 18 02/07/2020 3:40 PM EDT Oxygen Saturation 95% 02/07/2020 3:45 PM EDT Inhaled Oxygen Concentration - - Weight 76.2 kg (168 lb) 02/07/2020 11:35 AM EDT Height 160 cm (5' 3 ) 02/07/2020 11:35 AM EDT Body Mass Index 29.76 02/07/2020 11:35 AM EDT Plan of Treatment Health Maintenance Due Date Last Done Comments Annual Gynecologic Pelvic and Breast Exam 1974 TDAP/TD VACCINES (1 - Tdap) 1993 MAMMOGRAM 2014 COLOGUARD 2019 COLON CANCER SCREENING 5 YEAR SIGMOIDOSCOPY 2019 COLONOSCOPY 2019 COL[address]AL CANCER SCREENING 2019 CT COLONOGRAPHY 2019 FECAL OCCULT BLOOD TEST 2019 FIT Testing (1 year) 2019 ANNUAL PHYSICAL 02/05/2020 HEPATITIS C SCREENING 02/05/2020 COVID-19 Vaccine (1 - 2023- season) 2023 Pneumococcal Vaccine 50+ (1 of 1 - PCV) 01/24/2024 ZOSTER VACCINE (1 of 2) 01/24/2024 INFLUENZA VACCINE 01/16/2025 Medical Devices Implanted Type Area Laborer [employer] Device Identifier Shelf Expiration Date Model / Serial / Lot Clipapplr M/ Endo Ligaclip 20clp 11in - [id number] Implanted:Qty : 1 on 02/07/2020 by Roque Hoffman MD at [facility] Implant Left: Axilla [employer] [id number] 07/16/2024 [facility]20 / / [id number] Insurance [employer] Care Teams Lamina Searcher Relationship Specialty Start Date End Date Ramon Aldana MD [address] [facility] [address] [place] [address] PCP - General Internal Medicine 02/05/20
--- OUTSIDE RECORDS SUMMARY | 2024-11-29 13:46 | XMS_ITS | Clinical Summary ---
Author Organization Healthcare Address [address] [place] [address] Care Team Providers Care Tow Driver Name Role Phone Ramon Aldana MD Primary Care Provider [phone] Allergies No known active allergies Medications lisinopril-hydr oCHLOROthiazide 10-12.5 MG tablet TAKE ONE TABLET BY MOUTH EVERY DAY IN THE MORNING FOR blood pressure 10/19/2021 Active promethazine (Phenergan) 25 MG tablet TAKE 1 AND 1/2 TABLET BY MOUTH EVERY 6 HOURS NEEDED FOR NAUSEA AND VOMITING 03/05/2022 Active Active Problems Problem Noted Date Diagnosed Date Second hand smoke exposure 03/09/2022 Melanoma Cancer Staging:Pathologic stage from 02/07/2020:Stage IB(rpT2a, rpN0, rcM0) - Signed by Zelda Chapin MD on 03/09/2022 Family History Medical History Relation Name Comments Allergies Daughter Arthritis Father Cardiac disorder Father Diabetes Father Hypertension Father Lung cancer Father Arthritis Maternal Grandmother Breast cancer Maternal Grandmother Diabetes Maternal Grandmother Hyperlipidemia Maternal Grandmother Melanoma Maternal Grandmother Allergies Mother Arthritis Mother Diabetes Mother Hypercholesterolemia Mother Hypertension Mother Colon cancer Other Relation Name Status Comments Daughter Alive Father Maternal Grandmother Mother Other Social History Tobacco Use Types Packs/Day Years Used Date Smoking Tobacco: Never Passive Smoke Exposure: Past Smokeless Tobacco: Never Tobacco Cessation:Counseling Given: Not Answered Alcohol Use Standard Drinks/Week Comments No 0 (1 standard drink = 0.6 oz pur e alcohol) Comments Unknown Sex and Gender Information Value Date Recorded Sex Assigned at Not on file Legal Sex Female 8:29 PM EDT Gender Identity Not on file Sexual Orientation Not on file Last Filed Vital Signs Vital Sign Reading Time Taken Comments Blood Pressure 130/77 03/09/2022 9:34 AM EST Pulse 75 03/09/2022 9:34 AM EST Temperature 36.6 C (97.9 F) 03/09/2022 9:34 AM EST Respiratory Rate 18 03/09/2022 9:34 AM EST Oxygen Saturation 95% 03/09/2022 9:34 AM EST Inhaled Oxygen Concentration - - Weight 78.4 kg (172 lb 13.5 oz) 03/09/2022 9:34 AM EST Height 160 cm (5' 3 ) 03/09/2022 9:34 AM EST Body Mass Index 30.62 03/09/2022 9:34 AM EST Plan of Treatment Health Maintenance Due Date Last Done Comments [facility]-Depression Screening 1974 [facility]-Infant/Child/Adol SDOH Screenings 1974 [facility]- SDOH Screenings 01/24/1992 [facility]-Adult SDOH Screenings 01/24/1992 [facility]-Hepatitis B Vaccines (1 of 3 - 19+ 3-dose series) 1993 [facility]-Pap Smear 1995 [facility]-Cervical Cancer Screening 01/24/2004 [facility]-HPV/Cotest 01/24/2004 CT Colonography 2019 Colonoscopy 2019 FIT-DNA 2019 FIT 2019 FOBT 2019 Sigmoidoscopy 2019 [facility]-Colorectal Cancer Screening 2019 [id number] Vaccine (3 season) 2023 05/25/2021, 04/16/2021 [facility]-Pneumococcal Vaccine: 50 + Years (1 of 1 - PCV) 01/24/2024 [facility]-Zoster Vaccines (1 of 2) 01/24/2024 [facility]-Influenza Vaccine (#1) 2024 [facility]-DTaP,Tdap,and Td Vaccine s (2 - Td or Tdap) 03/02/2032 03/02/2022 HPV Vaccines Aged Out No longer eligi ble based on patient's age to complete this topic [facility]-HIB Vaccines Aged Out No longer e ligible based on patient's age to complete this topic [facility]-Hepatitis A Vaccines Aged Out No longer eligible based on patient's age to complete this topic [facility]-IPV Vaccines Aged Out No longer e ligible based on patient's age to complete this topic [facility]-Rotavirus Vaccines Aged Out No lo nger eligible based on patient's age to complete this topic Insurance [facility] Care Teams Tow Driver Relationship Specialty Start Date End Date Ramon Aldana MD [address] [place] [address] PCP - General 08/29/20
== END 2024-11-29 23:59 | disposition home or self-care (01) ==
LOC: RAD 13:28
PROVIDERS: PCP Internal Medicine; Visit Provider Internal Medicine
DX: S39.012A Strain of muscle, fascia and tendon of lower back, initial encounter (principal); X50.0XXA Overexertion from strenuous movement or load, initial encounter
CPT/HCPCS: 72100

== ENCOUNTER 2025-03-15 01:53 | Emergency (ER) | payer OTHER, SELFPAY ==
--- OUTSIDE RECORDS SUMMARY | 2025-03-15 01:59 | XMS_ITS | Clinical Summary ---
Author Organization [facility] Address [address] [place] [address] Care Team Providers Care Hr Recruiter Name Role Phone Ramon Aldana MD Primary Care Provider [phone] Allergies No known active allergies Medications lisinopril-hydr [...] ANNUAL PHYSICAL 02/05/2020 HEPATITIS C SCREENING 02/05/2020 Pneumococcal Vaccine 50+ (1 of 1 - PCV) 01/24/2024 ZOSTER VACCINE (1 of 2) 01/24/2024 INFLUENZA VACCINE 11/16/2024 Medical Devices Implanted Type Area Regional Coordinator Device Identifier Shelf Expiration Date Model / Serial / Lot Clipapplr M/ Endo Ligaclip 20clp 11in - [id number] Implanted:Qty : 1 on 02/07/2020 by Roque Hoffman MD at [facility] Implant Left: Axilla [employer] J [id number] 07/16/2024 [facility]20 / / [id number] Insurance [employer] Care Teams Hr Recruiter Relationship Specialty Start Date End Date Ramon Aldana MD [address] [facility] [address] [place] [address] PCP - General Internal Medicine 02/05/20
--- OUTSIDE RECORDS SUMMARY | 2025-03-15 01:59 | XMS_ITS | Clinical Summary ---
Author Organization Healthcare Address [address] [place] [address] Care Team Providers Care Linen Controller Name Role Phone Ramon Aldana MD Primary Care Provider [phone] Allergies No known active allergies Medications lisinopril-hydr oCHLOROthiazide 10-12.5 MG tablet TAKE ONE TABLET BY MOUTH EVERY DAY IN THE MORNING FOR blood pressure 10/19/2021 Active promethazine (Phenergan) 25 MG tablet TAKE 1 AND 1/2 TABLET BY MOUTH EVERY 6 HOURS NEEDED FOR NAUSEA AND VOMITING 03/05/2022 Active Active Problems Problem Noted Date Diagnosed Date Melanoma Cancer Staging:Pathologic stage from 02/07/2020:Stage IB(rpT2a, rpN0, rcM0) - Signed by Zelda Chapin MD on 03/09/2022 Resolved Problems Problem Noted Date Diagnosed Date Resolved Date Second hand smoke exposure 03/09/2022 0 01/06/2025 Family History Medical History Relation Name Comments [...] 2019 Sigmoidoscopy 2019 [facility]-Colorectal Cancer Screening 2019 [facility]-Pneumococcal Vaccine: 50 + Years (1 of 1 - PCV) 01/24/2024 [facility]-Zoster Vaccines (1 of 2) 01/24/2024 [id number] Vaccine (3 - 2024- season) 2024 05/25/2021, 04/16/2021 [facility]-Influenza Vaccine (#1) 2024 [facility]-DTaP,Tdap,and Td Vaccine [...] patient's age to complete this topic Insurance [facility] Care Teams Linen Controller Relationship Specialty Start Date End Date Ramon Aldana MD [address] [facility] [address] [place] [address] PCP - General 08/29/20
[2025-03-15 02:03] VITALS: BP 123/78; PULSE 87; RESP 18; TEMP 37.1; O2SAT 98; BMI 30.1
[2025-03-15 02:08] VITALS: BP 128/78; PULSE 74; RESP 18; TEMP 37.1; O2SAT 98
--- NOTE | 2025-03-15 02:18 | HMH.EDGENADL ---
Discharge Plan Disposition Patient Disposition: Home, Self-Care Prescriptions Prescriptions: New raltegravir 400 mg tablet 400 mg PO BID 28 Days Qty: 56 0RF emtricitabine-tenofovir (TDF) 200-300 mg tablet 1 tab PO DAILY 28 Days Qty: 28 0RF No Action ibuprofen 800 mg tablet 800 mg PO Q8H PRN (Reason: pain) Qty: 90 1RF Rx Instructions: Take with food or meal cyclobenzaprine 5 mg tablet 5 mg PO TID PRN (Reason: muscle spasm) Qty: 30 1RF lisinopril-hydrochlorothiazide 10-12.5 mg tablet See Rx Instructions .ROUTE .COMPLEX Qty: 90 1RF Dose Instruction: TAKE ONE TABLET BY MOUTH EVERY DAY IN THE MORNING FOR blood pressure Rx Instructions: TAKE ONE TABLET BY MOUTH EVERY DAY IN THE MORNING FOR blood pressure Referrals Follow up/Referrals: Ramon Aldana MD [Primary Care Provider, Medical] - See instructions Activity Restrictions/Add. Instructions Additional Instructions/Restrictions: Recommend taking postexposure prophylaxis for 4 weeks as discussed. Recommend following with your PCP for retesting of your labs and follow-up. Clinical Impressions Clinical Impression: Exposure to blood-borne pathogen Print Language Print Language: Mozamb[place] Discharge ED Provider: James Mckeon General Adult HPI General Chief complaint: PAIN Stated complaint: Stuck by needle R pointer finger Time Seen by Provider: 03/15/25 01:57 Mode of Arrival: Ambulatory Source of Information: Patient Description of Symptoms (Recalled from ER Triage Doc. by RN): Patient states she was sweeping a patients room, states she reached down while sweeping to pick something up and felt a sharp sting. States her right pointer finger was stuck by a needle. States she saw the needle. There was nop patient in the room, and staff is unsure of the patient. History of Present Illness HPI narrative: 50-year-old female without significant past medical history presents for needlestick. She was cleaning one of the rooms in the ER when she felt a sharp sting and found that her right pointer finger had been struck by needle. She washed it out. It is unclear what patient the needle might have been used on or whether it was used on the patient at all. Related Data Previous Rx's ?Medication ?Instructions ?Recorded cyclobenzaprine 5 mg tablet 5 mg PO TID PRN muscle spasm #30 11/22/24 tabs ibuprofen 800 mg tablet 800 mg PO Q8H PRN pain #90 tabs 11/22/24 lisinopril 10 See Rx Instructions .Route 01/29/25 mg-hydrochlorothiazide 12.5 mg .COMPLEX #90 tabs tablet emtricitabine 200 mg-tenofovir 1 tab PO DAILY 4 weeks #28 tabs 03/15/25 disoproxil fumarate 300 mg tablet raltegravir 400 mg tablet 400 mg PO BID 4 weeks #56 tabs 03/15/25 Allergies Allergy/AdvReac Type Severity Reaction Status Date / Time No Known Allergies Allergy Verified 12/12/24 16:06 [facility] Disclaimer: The information contained in this section may have been updated after the patient was seen, as this information can be updated by other users. Medical History Cancer Hypertension Surgical History History of section History of cholecystectomy Social History Smoking Status: Never smoker second hand exposure: No alcohol intake: never current occupational status: employed Travel in the last 8 weeks?: None household members: spouse and family housing: house current occupation: environmental services current occupational exposures/hazards: Yes caffeine: Yes Have you lived/traveled outside [place] in past 30 days?: No Contact w/someone who lives/traveled outside [place] past 30 days?: No Exposure to someone with infectious disease in past 14 days?: No Do you have a fever (greater than 100.4 F or 38 C)?: No Have you tested positive for COVID-19?: No Exposed to someone with COVID-19 in past 14 days?: No Do you have a sore throat?: No Do you have a cough?: No Do you have any weakness?: No Do you have any diarrhea?: No Are you experiencing any unusual bleeding?: No Do you have any muscle aches/pain?: No Do you have any abdominal pain?: No Are you experiencing loss of taste or smell?: No Other Medical History Have you received the Flu Vaccine for this season: Yes Have you received the Pneumonia Vaccine: No ROS Obtained: Yes All systems reviewed & no additional complaints except as documented Physical Exam General General appearance: alert and in no apparent distress Head Head exam: atraumatic and normocephalic Eye Eye exam: Present normal appearance, PERRL and EOMI ENT ENT exam: Present normal oropharynx and normal external ear exam Neck Neck exam: Present normal inspection and full ROM Chest Chest inspection: Present normal inspection and symmetric chest wall rise; Absent tenderness Respiratory Respiratory exam: Present normal lung sounds bilaterally; Absent respiratory distress Cardiovascular Cardiovascular exam: Present regular rate and normal rhythm Abdominal Exam Abdominal exam: Present soft; Absent distention, tenderness or guarding Extremities Exam Extremities exam: Present normal inspection; Absent edema or joint swelling Back Exam Back exam: Present normal inspection; Absent tenderness Neurological Exam Neurological exam: Present alert and oriented X3; Absent motor sensory deficit Psychiatric Psychiatric exam: Present normal affect and normal mood Skin Skin exam: Present warm, dry and normal color Lymphatic Lymphatic Findings: no adenopathy Medical Decision Making Medical Records Medical records reviewed: Yes I reviewed the patient's medical records. Screening: Per USPSTF and CDC recommendations, given the prevalence of disease in our region, it is our hospital?s policy to screen for HIV and viral Hepatitis for all patients aged 18 and over and those with ongoing risk factors. Kvng Inquiry Pt receiving controlled substance: No Kvng was queried for this patient: No Vital Signs: 03/15/25 02:03 03/15/25 02:08 03/15/25 03:42 Temperature 98.8 F 98.8 F 98.2 F Temperature Source Oral Pulse Rate 74 72 Pulse Rate [Left] 87 Respiratory Rate 18 18 20 Blood Pressure 128/78 132/88 Blood Pressure [Right Arm] 123/78 Blood Pressure Mean [Right Arm] 93 02 Sat by Pulse Oximetry 98 98 Oxygen Delivery Method Room Air Room Air Room Air Lab Data Lab results reviewed: Yes I reviewed the patient's lab results. Lab Results 03/15/25 02:03: Urine Opiates Screen Negative, Urine Methadone Screen Negative, Ur Barbituates Screen Negative, Ur Phencyclidine Scrn Negative, Ur Amphetamines Screen Negative, U Benzodiazepines Scrn Negative, Urine Cocaine Screen Negative, U Marijuana (THC) Screen Negative 03/15/25 02:10: WBC 8.4, RBC 4.35, Hgb 13.7, Hct 38.7, MCV 89.0, MCH 31.5 H, MCHC 35.4, RDW 11.9, Plt Count 237, MPV 9.6, Neut % (Auto) 52.1, Lymph % (Auto) 37.2, [place] % (Auto) 5.9, Eos % (Auto) 4.0, Baso % (Auto) 0.6, Neut # (Auto) 4.4, Lymph # (Auto) 3.1, [place] # (Auto) 0.5, Eos # (Auto) 0.3, Baso # (Auto) 0.1, PT 11.1, INR 1.00, APTT 26.6, Total Bilirubin 0.4, Direct Bilirubin 0.1, Conjugated Bilirubin 0.0, Indirect Bilirubin 0.3, Unconjugated Bilirubin 0.3, AST 33, ALT 30, Alkaline Phosphatase 98, Total Protein 7.8, Albumin 4.5, HCV Ab KIKI w/Rflx PCR Qn Negative, HIV Ag/Ab Combo Qual Negative 03/15/25 03:25: Sodium 140, Potassium 3.7, Chloride 102, Carbon Dioxide 26, Anion Gap 15.7 H, BUN 19 H, Creatinine 0.80, Estimated Creat Clear 101, Estimated GFR 76, Est GFR ( Amer) 92, Glucose 109 H, Calcium 9.0, Total Bilirubin 0.4, AST 33, ALT 30, Alkaline Phosphatase 100, Total Protein 7.8, Albumin 4.4, Globulin 3.4 H, Albumin/Globulin Ratio 1.3 03/15/25 02:10 03/15/25 03:25 Orders (Tests/Meds): ED MEDICATIONS Discontinued Medications Generic Name Dose Route Start Last Admin Trade Name Freq PRN Reason Stop Dose Admin Emtricitabine/Tenofovir 1 each 03/15/25 09:00 Emtricitabine/Tenofovir 200/300mg Tab PO 03/25/25 08:59 DAILY MESSI Emtricitabine/Tenofovir 1 each 03/15/25 03:01 03/15/25 03:05 Emtricitabine/Tenofovir 200/300mg Tab PO 03/15/25 03:02 1 each ONCE ONE Administration Hepatitis B Immune Globulin 1,441 unit 03/15/25 03:00 03/15/25 03:05 Hepatitis B Immune Globulin 312 Unit/Ml Vial IM 03/15/25 03:01 1,441 unit ONCE ONE Administration Hepatitis B Vaccine 20 mcg 03/15/25 02:28 03/15/25 03:29 Hepatitis B Vaccine 20mcg/Ml Vial (Adult) IM 03/15/25 02:29 20 mcg .ONCE ONE Administration Raltegravir 400 mg 03/15/25 09:00 Raltegravir 400mg Tablet PO 03/25/25 08:59 BID MESSI Raltegravir 400 mg 03/15/25 03:01 03/15/25 03:06 Raltegravir 400mg Tablet PO 03/15/25 03:02 400 mg ONCE ONE Administration ORDERS Category Date Time Status CMP [Comprehensive Metabolic Panel] Stat Lab 03/15/25 03:25 Completed Complete Blood Count Auto Diff Stat Lab 03/15/25 02:10 Completed HBsAg Screen Stat Lab 03/15/25 02:10 Received HIV Combo Stat Lab 03/15/25 02:10 Completed Hepatitis B Surf Ab Quant Stat Lab 03/15/25 02:10 Received Hepatitis C Ab Qual. 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 History was obtained via interactive discussion with patient. On arrival, patient is [afebrile, hemodynamically stable, satting appropriately, alert, oriented x4, GCS 15], moving all extremities spontaneously. Full physical exam performed and significant for small pinprick noted on the right pointer finger Differential includes but is not limited to blood-borne pathogen exposure. Given we are unable to know the status of the patient that the needle was used on, I discussed with patient that the most safe course of action would be to utilize hepatitis B and HIV post exposure prophylaxis. She was agreeable. Basic labs were obtained and patient was initiated on postexposure prophylaxis. She was discharged in stable condition with instruction to follow-up with her PCP. Procedures Risk/Benefits of Procedure(s) Were Explained: Yes Critical Care Critical Care Time Critical Care Time: No
[2025-03-15 02:22] LABS: Barbiturates Screen,Urine Negative ng/ml (<200)
[2025-03-15 02:23] LABS: Amphetamine/Metha Screen,Urine Negative ng/ml (<1000); Benzodiazepines Screen,Urine Negative ng/ml (<200)
[2025-03-15 02:25] LABS: Methadone Screen,Urine Negative ng/ml (<300)
[2025-03-15 02:26] LABS: Opiate Screen,Urine Negative ng/ml (<300)
[2025-03-15 02:27] LABS: Phencyclidine Screen,Urine Negative ng/ml (<25)
[2025-03-15 02:35] LABS: Albumin Level 4.5 g/dl (3.5-5.0); Hematocrit 38.7 % (37.0-47.0); Hemoglobin 13.7 g/dL (12.2-16.2); Immature Granulocytes % 0.2 %; Mean Corpuscular HGB Conc 35.4 g/dL (31.8-35.4); Mean Corpuscular Hemoglobin 31.5 pg (27.0-31.2); Mean Corpuscular Volume 89.0 fl (81-99); Nucleated Red Blood Cells % 0 %; Platelet Count 237 K/mm3 (142-424); Red Blood Count 4.35 M/mm3 (4.20-5.40); Red Cell Distribution Width-SD 38.7 fL; White Blood Count 8.4 K/mm3 (4.8-10.8)
[2025-03-15 02:38] LABS: Alanine Aminotransferase 30 U/L (12-78); Aspartate Amino Transferase 33 U/L (14-36); Bilirubin,Unconjugated 0.3 mg/dL (0.0-1.1); Total Protein,Serum 7.8 g/dl (6.3-8.2)
[2025-03-15 02:39] LABS: Alkaline Phosphatase 98 U/L (38-126); Bilirubin,Direct 0.1 mg/dl (0.0-0.4); Bilirubin,Indirect 0.3 mg/dL (0.0-0.9); Bilirubin,Total 0.4 mg/dl (0.2-1.3)
[2025-03-15 02:42] LABS: Activated Partial Thrombo Time 26.6 seconds (22.8-30.6); INR 1.00 (0.9-1.1); Prothrombin Time 11.1 seconds (10.1-12.5)
[2025-03-15] MEDS: EMTRICITABINE/TENOFOVIR 200/300MG TAB 1 EACH PO (03:05)
[2025-03-15 03:28] LABS: Hepatitis C Ab Qual. W/ RFX NEGATIVE (Negative)
[2025-03-15 03:37] LABS: Albumin Level 4.4 g/dl (3.5-5.0); Chloride 102 mmol/L (98-107); Potassium 3.7 mmoL/L (3.5-5.1); Sodium 140 mmol/L (136-145)
[2025-03-15 03:39] LABS: Blood Urea Nitrogen 19 mg/dl (7-17); Creatinine Clearance Estimated 101 mL/min (50-200); Creatinine,Serum 0.80 mg/dl (0.52-1.04); Estimated Glomerular Filt Rate 76 ml/min (>60); GFR (African American) 92 ML/MIN (>60)
[2025-03-15 03:40] LABS: Alanine Aminotransferase 30 U/L (12-78); Albumin/Globulin Ratio 1.3 (1.1-1.8); Alkaline Phosphatase 100 U/L (38-126); Anion Gap 15.7 mEq/L (5-15); Aspartate Amino Transferase 33 U/L (14-36); Bilirubin,Total 0.4 mg/dl (0.2-1.3); Calcium 9.0 mg/dl (8.4-10.2); Carbon Dioxide 26 mmol/L (22.0-30.0); Globulin 3.4 g/dL (1.3-3.2); Glucose 109 mg/dl (74-100); Total Protein,Serum 7.8 g/dl (6.3-8.2)
[2025-03-15 03:42] VITALS: BP 132/88; PULSE 72; RESP 20; TEMP 36.8; O2SAT 99
[2025-03-16 03:36] LABS: Hepatitis B Surface Antigen Negative (Negative); Hepatitis C Antibody Non Reactive (Non Reactive)
== END 2025-03-15 03:44 | disposition home or self-care (01) ==
PROVIDERS: Emergency Provider Emergency Medicine; PCP Internal Medicine
DX: S61.230A Puncture wound without foreign body of right index finger without damage to nail, initial encounter (principal); W46.1XXA Contact with contaminated hypodermic needle, initial encounter
CPT/HCPCS: 80053; 80076; 80307; 85025; 85610; 85730; 86706; 86803; 87340; 87389; 90471; 90746; 96372; 99284; G0010; J1571